=== PATIENT | female | born 1945 | race Caucasian/White ===

== ENCOUNTER 2022-07-13 20:16 | Emergency (ER) | payer OTHER, SELFPAY ==
[2022-07-13 20:28] VITALS: BP 123/80; PULSE 81; RESP 18; TEMP 36.3; O2SAT 95; BMI 28.9
[2022-07-13 20:28] LABS: Appearance Urine Slightly Cloudy (Clear); Bilirubin Urine Negative (Negative); Blood Urine Trace-intact (Negative); Color Urine Yellow (Yellow); Glucose Urine Negative (Negative); Ketones Urine Negative (Negative); Leukocyte Esterase Urine 1+ (Negative); Nitrite Urine Negative (Negative); Protein Urine Negative (Negative); Urobilinogen Urine 0.2 (0.2-1.0); pH Urine 7.5 (5.0-8.5)
[2022-07-13 20:40] LABS: RBC Urine 0-2 (0-2); Squamous Epithelial Cell Urine Few (None-Few)
[2022-07-13] MEDS: CIPROFLOXACIN 500 MG TABLET PO (21:46)
--- NOTE | 2022-07-14 00:20 | ED.FEMALEGU ---
HPI - Female Genitourinary General Date Seen: 07/14/22 Chief complaint: Urogenital Problems, Female Stated complaint: UTI Time Seen by Provider: 07/13/22 20:22 Source: patient Mode of arrival: ambulatory Limitations: no limitations History of Present Illness HPI Narrative: Patient is a very nice 76-year-old female presents here with dysuria frequency of urination for the last 4 hours or so, she goes to the bathroom probably every 15 minutes, very characteristic of a previous UTIs that she has had. She denies any blood in her urine, any fevers chills nausea vomiting or back pain associated with this. Been to this emergency room a couple times in the past for UTIs in tells me that she wants to make sure she takes the right antibiotic as it almost seemed like she took the wrong 1 in the past. She underwent a colonoscopy yesterday and mother wonders if this cause possibly the UTI, she did have some biopsies. Done MD elicited complaint: dysuria and UTI Patient : No Related Data Previous Rx's Medication Instructions Recorded ciprofloxacin HCl 250 mg tablet 250 mg PO BID #14 tabs 07/13/22 Allergies Allergy/AdvReac Type Severity Reaction Status Date / Time Sulfa (Sulfonamide Allergy Intermediate Rash Verified 07/13/22 20:27 Antibiotics) Review of Systems Status of ROS: Reports: 6 or more systems reviewed and unremarkable except as noted in History and below PFSH PFS Social History Smoking Status: Never smoker Do you use any of these nicotine containing products: None How often do you have a drink containing alcohol: never AUDIT-C Alcohol total score: 0 Non-prescribed substance use: denies use Exam Narrative: Exam Narrative: On examination she has no tenderness to palpation over her abdomen bowel sounds are normal no organomegaly, no CVA tenderness. Const: Vital Signs, click to edit/add: Vital Signs - 24 hr 07/13/22 20:28 Temperature 97.3 F L Pulse Rate [Pulse Oximeter] 81 Respiratory Rate 18 Blood Pressure [Ri ght Upper Arm] 123/80 Pulse Oximetry 95 Oxygen Delivery Me thod Room Air Course Course Hospital Course: Her UA does give some support to the fact she has a bladder infection, I reviewed her previous visits here and she grew Klebsiella and Proteus. They were all sensitive to Cipro, and I think this would be a good choice for her, I went over the risk of taking this medication including tendon rupture, and kidney issues. We will dose her 250 twice daily. With an initial 500 mg dosage. She will follow up if any further worsening or signs and symptoms, we will call her if the culture grows anything else. Vital Signs Vital signs: Initial Vital Signs Temperature 97.3 F L 07/13/22 20:28 Temperature Source Temporal Artery Scan 07/13/22 20:28 Pulse Rate 81 07/13/22 20:28 Respiratory Rate 18 07/13/22 20:28 Blood Pressure 123/80 07/13/22 20:28 Blood Pressure Mean 94 07/13/22 20:28 Pulse Oximetry 95 07/13/22 20:28 Oxygen Delivery Method Room Air 07/13/22 20:28 Vital Signs Temperature 97.3 F L 07/13/22 20:28 Pulse Rate 81 07/13/22 20:28 Respiratory Rate 18 07/13/22 20:28 Blood Pressure 123/80 07/13/22 20:28 Pulse Oximetry 95 07/13/22 20:28 Oxygen Delivery Method Room Air 07/13/22 20:28 Temperature 97.3 F L 07/13/22 20:28 Pulse Rate 81 07/13/22 20:28 Respiratory Rate 18 07/13/22 20:28 Blood Pressure 123/80 07/13/22 20:28 Pulse Oximetry 95 07/13/22 20:28 Oxygen Delivery Method Room Air 07/13/22 20:28 MDM - Female Genitourinary Differential Diagnosis Differential diagnosis: Likely urinary tract infection, bacterial vaginosis, trichomoniasis, ovarian cyst, cyst of Bartholin's gland and cystitis Medical Records Attestation: I reviewed the patient's medical records. Lab Data Attestation: I reviewed the patient's lab results. Labs: Lab Results 07/13/22 Range/Units 20:22 Urine Color Yellow (Yellow) Urine Appearance Slightly Cloudy A (Clear) Urine pH 7.5 (5.0-8.5) Ur Specific [place] 1.010 (1.000-1.030) Urine Protein Negative (Negative) Urine Glucose (UA) Negative (Negative) Urine Ketones Negative (Negative) Urine Blood Trace-intact A (Negative) Urine Nitrite Negative (Negative) Urine Bilirubin Negative (Negative) Urine Urobilinogen 0.2 (0.2-1.0) Ur Leukocyte Esterase 1+ A (Negative) Urine RBC 0-2 (0-2) Urine WBC 2-5 (0-5) Ur Squamous Epith Cells Few (None-Few) Urine Bacteria None (None) Discharge Plan Discharge Clinical Impression: Urinary tract infection Patient Disposition: Home, Self-Care Condition: Stable Instructions: Urinary Tract Infection in Older Adults (ED) Additional Instructions: Home, rest, use of medications as directed. Continue with the fluids. Return here if increasing fevers chills nausea vomiting or other issues. Activity Level: No Restrictions Prescriptions: New ciprofloxacin HCl 250 mg tablet 250 mg PO BID Qty: 14 0RF Follow Up/Referrals: Provider,Not a Local [Primary Care Provider] - Stand Alone Forms: [employer] Info Instructions
== END 2022-07-13 21:49 | disposition home or self-care (01) ==
PROVIDERS: Emergency Provider Family Medicine
DX: N39.0 Urinary tract infection, site not specified (principal)
CPT/HCPCS: 81001; 99283; A9270

== ENCOUNTER 2023-03-07 16:17 | Outpatient (CLI) | payer OTHER, SELFPAY | END 2023-03-07 16:18 | disposition home or self-care (01) | LOC: AMB 03-17 09:31 | PROVIDERS: Visit Provider Family Medicine | DX: R06.09 Other forms of dyspnea (principal); R53.1 Weakness | CPT/HCPCS: A0425; A0427 ==

== ENCOUNTER 2023-08-18 09:55 | Observation (INO) | payer OTHER, SELFPAY ==
[2023-08-18] VITALS (51 sets, daily range): BP systolic 71–119; BP diastolic 43–71; PULSE 50–77; RESP 12–31; TEMP 36.2–36.8; O2SAT 86–100; BMI 28.9
[2023-08-18] MEDS: 0.9 % SODIUM CHLORIDE 1000 ml 1,000 ML IV (10:20)
--- NOTE | 2023-08-18 10:22 | CRLHL7_ITS ---
For Patients: As a result of the Cures Act, medical imaging exams and procedure reports are released immediately into your electronic medical record. You may view this report before your referring provider. If you have questions, please contact your health care provider. Indication Wheezes Technique One view(s) of the chest Comparison Chest radiograph on June 09, 2023 and December 12, 2022 Findings The cardiomediastinal silhouette and pulmonary vasculature are unremarkable. There is no focal airspace consolidation, pleural effusion, or pneumothorax. No displaced fractures. Lumbar scoliosis and degenerative changes of the spine. 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 Impression No acute cardiopulmonary process. Dictated by Perez Olmos MD @ 08/18/2023 10:44:09 AM (Electronically Signed)
--- NOTE | 2023-08-18 10:24 | ED_ITS ---
HPI - Weakness General Chief complaint: Weakness Stated complaint: Weakness, diarrhea, nausea Time Seen by Provider: 08/18/23 10:01 History of Present Illness HPI Narrative: This 77-year-old female comes in reporting generalized weakness with some nausea and lightheadedness. She has had some diarrhea over the past few days but had none yesterday. She arrives here with systolic blood pressure in the 90s. She is on 2 antihypertensive medications and states that her doctor reports that she has white coat syndrome. She started a new antihypertensive medication somewhat recently and states that she is feeling more lightheaded at times. She states that she wakes up in the morning and feels okay but these symptoms come after few hours. She takes her blood pressure medications in the morning. She does not report any pain. She has not had any blood in the toilet. She has not had any fevers. She does have history of asthma but did not take her breathing treatment medicines this morning. She arrives with normal oximetry and normal temperature. She does have bilateral wheezes. Related Data Home Medications ?Medication ?Instructions ?Recorded ?Confirmed albuterol sulfate 90 mcg/actuation 1 inh inhalation Q4H PRN 12/12/22 08/18/23 aerosol inhaler fenofibrate micronized 134 mg 134 mg PO DAILY 12/12/22 08/18/23 capsule fluticasone fur. 200 mcg-umeclid 1 ea inhalation DAILY 12/12/22 08/18/23 62.5 mcg-vilant 25 mcg inhalat.powder (Trelegy Ellipta) hydrocortisone 5 mg tablet 10 mg PO BID 12/12/22 08/18/23 ipratropium 0.5 mg-albuterol 3 mg 1.5 ml inhalation BID 12/12/22 08/18/23 (2.5 mg base)/3 mL nebulization soln levothyroxine 150 mcg tablet 150 mcg PO DAILY 12/12/22 08/18/23 montelukast 10 mg tablet 10 mg PO HS 12/12/22 08/18/23 paroxetine HCl 40 mg tablet 40 mg PO DAILY 12/12/22 08/18/23 apixaban 5 mg tablet (Eliquis) 5 mg PO BID 08/18/23 08/18/23 atorvastatin 40 mg tablet 40 mg PO HS 08/18/23 08/18/23 hydrochlorothiazide 25 mg tablet 25 mg PO DAILY 08/18/23 08/18/23 losartan 50 mg tablet 50 mg PO DAILY 08/18/23 08/18/23 metformin 500 mg tablet 500 mg PO BIDWM 08/18/23 08/18/23 nitroglycerin 0.4 mg sublingual 0.4 mg sublingual Q5M PRN 08/18/23 08/18/23 tablet potassium chloride 10 mEq 10 meq PO DAILY 08/18/23 08/18/23 capsule,extended release Allergies Allergy/AdvReac Type Severity Reaction Status Date / Time Sulfa (Sulfonamide Allergy Intermediate Rash Verified 06/09/23 13:21 Antibiotics) diltiazem Allergy Verified 08/18/23 10:13 Review of Systems Status of ROS: Reports: 10 or more systems reviewed and unremarkable except as noted in History and below Narrative: Constitutional: No fevers, no weight gain or loss. Eyes: No discharge. No vision changes. HENT: No congestion, no sore throat, no ear pain. Cardiovascular: No chest pain, no palpitations. Respiratory: No shortness of breath. She has history of asthma symptoms and does report a cough. Gastrointestinal: No abdominal pain, no vomiting, no diarrhea. Genitourinary: No dysuria, no hematuria. Musculoskeletal: Normal range of motion. Skin: No rashes, no pruritis. Neurological: No sensory change, speech change. She reports generalized weakness and episodes of lightheadedness. Endo/Heme/Allergies: No bruising or bleeding. No polydipsia. Pysch: no suicidality, no anxiety, no insomnia. All other systems reviewed and are negative. [facility] Medical History Pneumonia ?J18.9 - Pneumonia, unspecified organism (ICD-10) Shortness of breath ?R06.02 - Shortness of breath (ICD-10) Social History Smoking Status: Never smoker Do you use any of these nicotine containing products: None How often do you have a drink containing alcohol: never AUDIT-C Alcohol total score: 0 Non-prescribed substance use: denies use Exam Narrative: Exam Narrative: Constitutional: Well-developed, well-nourished HEENT: Normocephalic, atraumatic. Neck: Normal range of motion. Nontender. Supple. Heart: Regular. No murmurs. Normal rate. Intact distal pulses. Lungs: Clear to auscultation. No chest discomfort. No wheezes, rhonchi, or rales. Abdomen: Normal bowel sounds. Nontender. No rebound tenderness. Genitalia: Deferred. Back: No midline tenderness. Normal range of motion. Extremities: Normal range of motion. No injury. Skin: Intact. No rash. Warm. No erythema or pallor. Neurologic: No altered sensation. Alert and oriented. Psychiatric: No suicidality. No anxiety or depression. No insomnia. Nursing notes and vitals signs are reviewed. Const: Vital Signs, click to edit/add: Vital Signs - 24 hr 08/18/23 10:05 08/18/23 10:19 08/18/23 10:20 Temperature 97.2 F L Pulse Rate 66 Pulse Rate [Right Pulse Oximeter] 77 Respiratory Rate 18 Blood Pressure 71/48 L Blood Pressure [Ri ght Upper Arm] 94/59 L Pulse Oximetry 94 99 Oxygen Delivery [facility] Room Air 08/18/23 10:23 08/18/23 10:26 08/18/23 10:31 Temperature Pulse Rate 63 57 L 60 Pulse Rate [Right Pulse Oximeter] Respiratory Rate Blood Pressure 74/51 L 81/49 L 75/43 L Blood Pressure [Ri ght Upper Arm] Pulse Oximetry 91 98 100 Oxygen Delivery [facility] 08/18/23 10:36 08/18/23 10:42 08/18/23 10:45 Temperature Pulse Rate 56 L 53 L 53 L Pulse Rate [Right Pulse Oximeter] Respiratory Rate 31 H 15 Blood Pressure 81/50 L 88/52 L 72/61 L Blood Pressure [Ri ght Upper Arm] Pulse Oximetry 97 97 97 Oxygen Delivery [facility] 08/18/23 10:51 08/18/23 10:57 08/18/23 11:02 Temperature Pulse Rate 54 L 55 L 56 L Pulse Rate [Right Pulse Oximeter] Respiratory Rate 20 26 H 26 H Blood Pressure 86/51 L 93/52 L 83/47 L Blood Pressure [Ri ght Upper Arm] Pulse Oximetry 99 95 95 Oxygen Delivery [facility] 08/18/23 11:06 Temperature Pulse Rate 55 L Pulse Rate [Right Pulse Oximeter] Respiratory Rate 20 Blood Pressure 90/52 L Blood Pressure [Ri ght Upper Arm] Pulse Oximetry 98 Oxygen Delivery Me thod Course Vital Signs Vital signs: Initial Vital Signs Temperature 97.2 F L 08/18/23 10:05 Temperature Source Temporal Artery Scan 08/18/23 10:05 Pulse Rate 77 08/18/23 10:05 Respiratory Rate 18 08/18/23 10:05 Blood Pressure 94/59 L 08/18/23 10:05 Blood Pressure Mean 70 08/18/23 10:05 Blood Pressure Position Sitting 08/18/23 10:05 Pulse Oximetry 94 08/18/23 10:05 Oxygen Delivery Method Room Air 08/18/23 10:05 Vital Signs Temperature 97.2 F L 08/18/23 10:05 Pulse Rate 77 08/18/23 10:05 Respiratory Rate 18 08/18/23 10:05 Blood Pressure 94/59 L 08/18/23 10:05 Pulse Oximetry 94 08/18/23 10:05 Oxygen Delivery Method Room Air 08/18/23 10:05 Temperature 97.2 F L 08/18/23 10:05 Pulse Rate 55 L 08/18/23 11:06 Respiratory Rate 20 08/18/23 11:06 Blood Pressure 90/52 L 08/18/23 11:06 Pulse Oximetry 98 08/18/23 11:06 Oxygen Delivery Method Room Air 08/18/23 10:05 Medications Administered Medications: Discontinued Medications Generic Name Dose Route Start Last Admin Trade Name Freq PRN Reason Stop Dose Admin Sodium Chloride 1,000 mls @ 1,000 mls/hr 08/18/23 10:30 08/18/23 11:30 0.9 % Sodium Chloride 1000 Ml IV 08/18/23 11:29 Infused .Q1H HAILEY Infusion Ondansetron HCl 4 mg 08/18/23 10:21 08/18/23 10:29 Ondansetron 2 Mg/Ml Inj IVP 08/18/23 10:22 4 mg ONCE ONE Administration MDM - Weakness MDM Narrative Medical decision making narrative: This patient comes in reporting generalized weakness and lightheadedness in states that she has had diarrhea over the past 2 or 3 days. She arrives here with systolic blood pressure around 90. An IV was established where she received a L of normal saline and pressures continued in similar readings. A 2 L of fluids was ordered this time with lactated Ringer's as the potassium returned at 2.5. The patient is taking potassium supplements and currently is taking hydrochlorothiazide and losartan. She states that she took these medicines prior to arrival here. EKG and troponin returned with normal findings. Chest x-ray is negative for acute pulmonary disease. Her lactate returns in normal range as is her white blood count. She is not showing any signs of sepsis or cardiogenic cause for her decreased blood pressure. Most likely it has to do with volume depletion and antihypertensive medications. I did order an oral dose of potassium chloride. I spoke with the hospitalist donation worker, Radha Joya, who agrees to her admission. Lab Data Labs: Lab Results 08/18/23 08/18/23 08/18/23 Range/Units 10:20 10:22 10:25 WBC 7.41 (4.50-11.00) K/uL RBC 5.02 (4.00-5.20) m/uL Hgb 13.3 (12.0-16.0) gm/dL Hct 41.1 (33.0-51.0) % MCV 82 (80-100) fL MCH 27 (26-34) pg MCHC 32 (32-36) gm/dL RDW Coeff of Reena 14.7 (11.5-15.5) % Plt Count 225 (140-440) K/uL Neut % (Auto) 77.2 H (42.0-72.0) % Lymph % (Auto) 12.0 L (20-44) % [place] % (Auto) 8.6 (0.0-11.0) % Eos % (Auto) 1.5 (0.0-7.0) % Baso % (Auto) 0.4 (0.0-3.0) % Neut # (Auto) 5.70 (1.7-7.0) K/uL Lymph # (Auto) 0.90 (0.90-2.90) K/uL [place] # (Auto) 0.60 (0.00-0.90) K/UL Eos # (Auto) 0.11 (0.00-0.50) K/uL Baso # (Auto) 0.03 (0.00-0.30) K/uL Abs Immat Gran (auto) 0.02 (0.00-0.30) K/uL Imm/Tot Granulo (auto) 0.3 % Sodium 132 L (135-149) mmol/L Potassium 2.5 L* (3.6-5.1) mmol/L Chloride 97 (96-114) mmol/L Carbon Dioxide 28 (20-32) mmol/L Anion Gap 7 (7-15) mEq/L BUN 32 H (7-30) mg/dL Creatinine 1.6 H (0.5-1.5) mg/dL Estimated Creat Clear 29.23 Estimated GFR 33 ml/min Glucose 95 (60-115) mg/dL Lactate 1.2 (0.5-1.9) mmol/L Calcium 8.0 L (8.4-10.6) mg/dL SARS-CoV-2 (PCR) Negative SARS-CoV-2 (Negative) Influenza Type A (PCR) Negative PCR FLU A (Negative) Influenza Type B (PCR) Negative PCR FLU B (Negative) RSV (PCR) Negative PCR RSV (Negative) POC Troponin I 0.01 (0.01-0.04) ng/ml ECG Data Attestation: I personally reviewed and interpreted this ECG as follows: Interpretation: Normal sinus rhythm. Rate is 68 beats per minute. There are no ST or T-wave abnormalities. Discharge Plan Discharge Clinical Impression: Fluid volume depletion, Acute hypokalemia, Hypotension Patient Disposition: Admitted As Observation Prescriptions: No Action ipratropium-albuterol 0.5 mg-3 mg(2.5 mg base)/3 mL solution for nebulization 1.5 ml inhalation BID Patient Comments: [NO ORIGINAL SIG] montelukast 10 mg tablet 10 mg PO HS Trelegy Ellipta 200-62.5-25 mcg blister with device 1 ea inhalation DAILY hydrocortisone 5 mg tablet 10 mg PO BID levothyroxine 150 mcg tablet 150 mcg PO DAILY fenofibrate micronized 134 mg capsule 134 mg PO DAILY paroxetine HCl 40 mg tablet 40 mg PO DAILY albuterol sulfate 90 mcg/actuation HFA aerosol inhaler 1 inh inhalation Q4H PRN losartan 50 mg tablet 50 mg PO DAILY potassium chloride 10 mEq capsule, extended release 10 meq PO DAILY nitroglycerin 0.4 mg tablet, sublingual 0.4 mg sublingual Q5M PRN hydrochlorothiazide 25 mg tablet 25 mg PO DAILY Eliquis 5 mg tablet 5 mg PO BID atorvastatin 40 mg tablet 40 mg PO HS metformin 500 mg tablet 500 mg PO BIDWM Follow Up/Referrals: Provider,Not a Local [Primary Care Provider] -
[2023-08-18] MEDS: ONDANSETRON 2 MG/ML inj 4 MG IVP (10:29)
[2023-08-18 10:30] LABS: Basophils Absolute Auto 0.03 K/uL (0.00-0.30); Basophils Percent Auto 0.4 % (0.0-3.0); Eosinophils Absolute Auto 0.11 K/uL (0.00-0.50); Eosinophils Percent Auto 1.5 % (0.0-7.0); Hematocrit 41.1 % (33.0-51.0); Hemoglobin* 13.3 gm/dL (12.0-16.0); Immature Granulocytes Abs Auto 0.02 K/uL (0.00-0.30); Immature Granulocytes Pct Auto 0.3 %; Mean Corpuscular HGB Conc 32 gm/dL (32-36); Mean Corpuscular Hemoglobin 27 pg (26-34); Mean Corpuscular Volume 82 fL (80-100); Monocytes Percent Auto 8.6 % (0.0-11.0); Neutrophils Percent Auto 77.2 % (42.0-72.0); Platelet Count* 225 K/uL (140-440); RDW Coefficient of Variation % 14.7 % (11.5-15.5); Red Blood Count 5.02 m/uL (4.00-5.20); White Blood Count* 7.41 K/uL (4.50-11.00)
[2023-08-18 10:31] LABS: Lactate* 1.2 mmol/L (0.5-1.9)
[2023-08-18 10:33] LABS: Slide Review Reflex No
[2023-08-18 10:45] LABS: Chloride* 97 mmol/L (96-114); Sodium* 132 mmol/L (135-149)
[2023-08-18 10:48] LABS: Anion Gap 7 mEq/L (7-15); Blood Urea Nitrogen* 32 mg/dL (7-30); Carbon Dioxide* 28 mmol/L (20-32); Creatinine* 1.6 mg/dL (0.5-1.5); Est. Creatinine Clearance* 29.23; Estimated Glomerular Filt Rate 33 ml/min; Glucose* 95 mg/dL (60-115)
[2023-08-18 10:53] LABS: Potassium* 2.5 mmol/L (3.6-5.1)
--- NOTE | 2023-08-18 11:01 | ED.NURSE ---
call from lab, critical K, care nurse and MD notified.
[2023-08-18 11:06] LABS: Troponin, Point-of-Care* 0.01 ng/ml (0.01-0.04)
[2023-08-18 11:12] LABS: PCR FLU A Negative PCR FLU A (Negative); PCR FLU B Negative PCR FLU B (Negative); PCR RSV Negative PCR RSV (Negative); SARS PCR* Negative SARS-CoV-2 (Negative)
[2023-08-18] MEDS: LACTATED RINGERS 1000 ML 1,000 ML IV (11:44)
[2023-08-18 12:08] LABS: Appearance Urine Clear (Clear); Bilirubin Urine Negative (Negative); Blood Urine Trace-lysed (Negative); Color Urine Yellow (Yellow); Glucose Urine Negative (Negative); Ketones Urine Negative (Negative); Leukocyte Esterase Urine Negative (Negative); Nitrite Urine Negative (Negative); Protein Urine Negative (Negative); Urobilinogen Urine 0.2 (0.2-1.0)
--- NOTE | 2023-08-18 12:11 | CRLHL7_ITS ---
For Patients: As a result of the Century Cures Act, medical imaging exams and procedure reports are released immediately into your electronic medical record. You may view this report before your referring provider. If you have questions, please contact your health care provider. INDICATION: Hypotension TECHNIQUE: Axial images were obtained from the diaphragm to the pubic symphysis. Reformats were obtained in the coronal and sagittal plane. IV Contrast: 93 cc Isovue 370 Oral Contrast: None COMPARISON: None. FINDINGS: Lower chest: Scattered areas of discoid atelectasis within the right lower lobe and right middle lobe. 3 millimeter noncalcified pulmonary nodule in the right middle lobe (3, 7). Liver: Unremarkable. Normal in size and attenuation. No masses. Gallbladder and bile ducts: Slight gallbladder wall thickening questioned (series 2, image 56). Spleen: Unremarkable. Normal in size without mass. Pancreas: Unremarkable. No mass or inflammation. Adrenal glands: Unremarkable. No nodules. Kidneys: Unremarkable. No masses, stones, or hydronephrosis. Vasculature: Atherosclerosis without abdominal aortic aneurysm. GI tract: The stomach is decompressed and unremarkable. No dilated loops of large or small intestine. Normal appendix. Colonic diverticulosis. Pelvis: The bladder is unremarkable. 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 IMPRESSION: 1. Minimal gallbladder wall thickening questioned. This is equivocal although right upper quadrant ultrasound is suggested for further characterization. 2. Colonic diverticulosis without CT evidence of diverticulitis. 3. Indeterminate right middle lobe pulmonary nodule measuring 3 millimeters. Management as per Fleischner society criteria below. SOCIETY GUIDELINES - SOLID NODULES: SINGLE LOW RISK - nodule less than 6 mm: No routine follow-up. SINGLE HIGH RISK - nodule less than 6 mm: Optional CT at 12 months. Please note that all CT scans at this facility use dose modulation, iterative reconstruction, and/or weight-based dosing when appropriate to reduce radiation dose to as low as reasonably achievable. Dictated by Calixto Carreon MD @ 08/18/2023 1:32:00 PM (Electronically Signed)
[2023-08-18 12:12] LABS: HCO3 VBG 28 mmol/L (21-28); PCO2 VBG 41 mmHG (40-50); PO2 VBG < 30.0 mmHG (25-47); pH VBG 7.445 (7.32-7.43)
[2023-08-18 12:20] LABS: RBC Urine 0-2 (0-2); Squamous Epithelial Cell Urine Few (None-Few); WBC Urine 0-2 (0-5)
--- NOTE | 2023-08-18 13:59 | PM.IMHP1 ---
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 Patient is seen with at bedside. Tells me she started losartan and hydrochlorothiazide in May for blood pressures thought to be white coat syndrome. Since that time, has had significant lightheadedness and dizziness, needing to change positions slowly to decrease symptoms. Has noted some fatigue. Earlier this week complained of increasing fatigue, weakness. Onset of diarrhea Monday with 1 episode following by several episodes Monday. None since. Denies bloody or black stools. Is on an anticoagulant. Denies abdominal pain or cramping. No colic pain. Has had some intermittent nausea without vomiting. Decreased appetite with poor oral intake. Has continued to urinate normally. Denies headaches. Endorses dizziness and lightheadedness since May. Denies recent fevers chills or sweats. Denies chest pain. Denies shortness of breath or coughing worse than normal. Uses her DuoNebs twice daily. Denies peripheral swelling. Nonsmoker. Denies alcohol use. Wishes to be a full code. In the ED, initial saturations noted to be <90% briefly. Has not required ongoing oxygen supplementation. Systolic blood pressures <90, improving with IVF. Afebrile. No leukocytosis, lactate unremarkable. CXR without acute infectious/inflammatory findings. Triple swab negative. UA unremarkable. ACS ruled out. Review of Systems Narrative: REVIEW OF SYSTEMS: Complete review of systems performed and negative unless otherwise stated in HPI or below. [facility] Medical History Elevated hemoglobin A1c ?R73.09 - Other abnormal glucose (ICD-10) Hyperlipidemia ?E78.5 - Hyperlipidemia, unspecified (ICD-10) Hypertension ?I10 - Essential (primary) hypertension (ICD-10) Hypothyroidism ?E03.9 - Hypothyroidism, unspecified (ICD-10) Atrial fibrillation ?I48.91 - Unspecified atrial fibrillation (ICD-10) History of pituitary tumor ?Z87.898 - Personal history of other specified conditions (ICD-10) Adrenal insufficiency ?E27.40 - Unspecified adrenocortical insufficiency (ICD-10) Pneumonia ?J18.9 - Pneumonia, unspecified organism (ICD-10) Shortness of breath ?R06.02 - Shortness of breath (ICD-10) Social History Smoking Status: Never smoker Do you use any of these nicotine containing products: None How often do you have a drink containing alcohol: never AUDIT-C Alcohol total score: 0 Non-prescribed substance use: denies use Meds Home Medications and Allergies Home Medications ?Medication ?Instructions ?Recorded ?Confirmed ?Type albuterol sulfate 90 mcg/actuation 1 inh inhalation Q4H PRN 12/12/22 08/18/23 History aerosol inhaler fenofibrate micronized 134 mg 134 mg PO DAILY 12/12/22 08/18/23 History capsule fluticasone fur. 200 mcg-umeclid 1 ea inhalation DAILY 12/12/22 08/18/23 History 62.5 mcg-vilant 25 mcg inhalat.powder (Trelegy Ellipta) hydrocortisone 5 mg tablet 5 - 15 mg PO BID 12/12/22 08/18/23 History ipratropium 0.5 mg-albuterol 3 mg 1.5 ml inhalation BID 12/12/22 08/18/23 History (2.5 mg base)/3 mL nebulization soln levothyroxine 150 mcg tablet 150 mcg PO DAILY 12/12/22 08/18/23 History montelukast 10 mg tablet 10 mg PO HS 12/12/22 08/18/23 History paroxetine HCl 40 mg tablet 40 mg PO DAILY 12/12/22 08/18/23 History apixaban 5 mg tablet (Eliquis) 5 mg PO BID 08/18/23 08/18/23 History atorvastatin 40 mg tablet 40 mg PO HS 08/18/23 08/18/23 History hydrochlorothiazide 25 mg tablet 25 mg PO DAILY 08/18/23 08/18/23 History losartan 50 mg tablet 50 mg PO DAILY 08/18/23 08/18/23 History metformin 500 mg tablet 500 mg PO BIDWM 08/18/23 08/18/23 History nitroglycerin 0.4 mg sublingual 0.4 mg sublingual Q5M PRN 08/18/23 08/18/23 History tablet potassium chloride 10 mEq 10 meq PO DAILY 08/18/23 08/18/23 History capsule,extended release Allergies Allergy/AdvReac Type Severity Reaction Status Date / Time Sulfa (Sulfonamide Allergy Intermediate Rash Verified 06/09/23 13:21 Antibiotics) diltiazem Allergy Verified 08/18/23 10:13 Exam Narrative: Exam Narrative: PHYSICAL EXAM General: Pleasant, conversant, NAD HEENT: Normocephalic, atraumatic, sclera white, EOMI, oral mucosa dry Cardiovascular: RRR, S1S2. No pitting edema Pulmonary: Coarse throughout, expiratory wheezes noted. No dyspnea on room air Abdominal: Soft, nondistended, NTTP, no guarding Neurological: Alert, answering questions appropriately, cranial nerves intact, no focal findings Extremities: No gross joint deformity or swelling. AROMI. Neurovascularly intact Skin: Warm, dry. Const: Vital Signs, click to edit/add: Vital Signs - 24 hr 08/18/23 10:05 08/18/23 10:19 08/18/23 10:20 Temperature 97.2 F L Pulse Rate 66 Pulse Rate [Right Pulse Oximeter] 77 Respiratory Rate 18 Blood Pressure 71/48 L Blood Pressure [Ri ght Upper Arm] 94/59 L Pulse Oximetry 94 [facility] 08/18/23 10:23 08/18/23 10:26 08/18/23 10:31 Temperature Pulse Rate 63 57 L 60 Pulse Rate [Right Pulse Oximeter] Respiratory Rate Blood Pressure 74/51 L 81/49 L 75/43 L Blood Pressure [Ri ght Upper Arm] Pulse Oximetry 91 98 100 Oxygen Delivery Ma thod 08/18/23 10:36 08/18/23 10:42 08/18/23 10:45 Temperature Pulse Rate 56 L 53 L 53 L Pulse Rate [Right Pulse Oximeter] Respiratory Rate 31 H 15 Blood Pressure 81/50 L 88/52 L 72/61 L Blood Pressure [Ri ght Upper Arm] Pulse Oximetry 97 97 97 [facility] 08/18/23 10:51 08/18/23 10:57 08/18/23 11:02 Temperature Pulse Rate 54 L 55 L 56 L Pulse Rate [Right Pulse Oximeter] Respiratory Rate 20 26 H 26 H Blood Pressure 86/51 L 93/52 L 83/47 L Blood Pressure [Ri ght Upper Arm] Pulse Oximetry 99 95 [facility] 08/18/23 11:06 08/18/23 11:07 08/18/23 11:11 Temperature Pulse Rate 55 L 56 L 57 L Pulse Rate [Right Pulse Oximeter] Respiratory Rate 20 12 24 Blood Pressure 90/52 L 99/53 L Blood Pressure [Ri ght Upper Arm] Pulse Oximetry 98 94 [facility] 08/18/23 11:15 08/18/23 11:16 08/18/23 11:21 Temperature Pulse Rate 56 L 56 L 54 L Pulse Rate [Right Pulse Oximeter] Respiratory Rate 28 H 28 H 19 Blood Pressure 93/54 L 85/50 L Blood Pressure [Ri ght Upper Arm] Pulse Oximetry 94 92 86 L [facility] 08/18/23 11:26 08/18/23 11:30 08/18/23 11:31 Temperature Pulse Rate 53 L 52 L 57 L Pulse Rate [Right Pulse Oximeter] Respiratory Rate 17 24 27 H Blood Pressure 93/52 L 99/60 Blood Pressure [Ri ght Upper Arm] Pulse Oximetry [address] [facility] 08/18/23 11:36 08/18/23 11:37 08/18/23 11:41 Temperature Pulse Rate 50 L 59 L Pulse Rate [Right Pulse Oximeter] Respiratory Rate 30 H 25 H 20 Blood Pressure 79/50 L 103/62 Blood Pressure [Ri ght Upper Arm] Pulse Oximetry 96 [address] [facility] 08/18/23 11:45 08/18/23 11:46 08/18/23 11:51 Temperature Pulse Rate 57 L 54 L Pulse Rate [Right Pulse Oximeter] Respiratory Rate 12 12 Blood Pressure 80/64 L 83/48 L Blood Pressure [Ri ght Upper Arm] Pulse Oximetry 89 [facility] 08/18/23 11:53 08/18/23 12:00 08/18/23 12:01 Temperature Pulse Rate 64 59 L Pulse Rate [Right Pulse Oximeter] Respiratory Rate Blood Pressure 88/56 L 103/51 L Blood Pressure [Ri ght Upper Arm] Pulse Oximetry 93 97 [facility] 08/18/23 12:11 08/18/23 12:21 08/18/23 12:42 Temperature Pulse Rate 54 L 63 65 Pulse Rate [Right Pulse Oximeter] Respiratory Rate Blood Pressure 107/53 L 106/57 L 103/63 Blood Pressure [Ri ght Upper Arm] Pulse Oximetry 93 95 [facility] 08/18/23 12:43 08/18/23 12:45 08/18/23 12:46 Temperature Pulse Rate 64 64 62 Pulse Rate [Right Pulse Oximeter] Respiratory Rate Blood Pressure 97/59 L Blood Pressure [Ri ght Upper Arm] Pulse Oximetry 98 98 [address] [facility] 08/18/23 12:47 08/18/23 13:00 08/18/23 13:01 Temperature Pulse Rate 66 66 Pulse Rate [Right Pulse Oximeter] Respiratory Rate 24 Blood Pressure 117/61 Blood Pressure [Ri ght Upper Arm] Pulse Oximetry 91 [address] [facility] 08/18/23 13:02 08/18/23 13:15 08/18/23 13:16 Temperature Pulse Rate 67 64 64 Pulse Rate [Right Pulse Oximeter] Respiratory Rate Blood Pressure 119/66 Blood Pressure [Ri ght Upper Arm] Pulse Oximetry 93 96 [facility] 08/18/23 13:30 08/18/23 13:31 08/18/23 13:45 Temperature Pulse Rate 61 62 62 Pulse Rate [Right Pulse Oximeter] Respiratory Rate Blood Pressure 109/65 Blood Pressure [Ri ght Upper Arm] Pulse Oximetry 96 96 [facility] 08/18/23 13:46 Temperature Pulse Rate 63 Pulse Rate [Right Pulse Oximeter] Respiratory Rate Blood Pressure 115/66 Blood Pressure [Ri ght Upper Arm] Pulse Oximetry 94 Oxygen Delivery [facility] Hospitalist - H&P: Result Labs Labs: Short CBC 08/18/23 Range/Units 10:20 WBC 7.41 (4.50-11.00) K/uL Hgb 13.3 (12.0-16.0) gm/dL Hct 41.1 (33.0-51.0) % Plt Count 225 (140-440) K/uL BMP 08/18/23 10:20 Sodium 132 L Potassium 2.5 L* Chloride 97 Carbon Dioxide 28 BUN 32 H Creatinine 1.6 H Glucose 95 Calcium 8.0 L Urine 08/18/23 Range/Units 11:58 Urine Color Yellow (Yellow) Urine Appearance Clear (Clear) Urine pH 6.0 (5.0-8.5) Ur Specific [place] 1.010 (1.000-1.030) Urine Protein Negative (Negative) Urine Glucose (UA) Negative (Negative) ECG Attestation: I personally reviewed and interpreted this ECG as follows: ECG interpretation date: 08/18/23 Interpretation: NSR, incomplete RBBB, ventricular rate 68, QTC [address] scan - abdomen: Attestation: I have reviewed the pertinent imaging results. Radiologist's impression: FINDINGS: Lower chest: Scattered areas of discoid atelectasis within the right lower lobe and right middle lobe. 3 millimeter noncalcified pulmonary nodule in the right middle lobe (3, 7). Liver: Unremarkable. Normal in size and attenuation. No masses. Gallbladder and bile ducts: Slight gallbladder wall thickening questioned (series 2, image 56). Spleen: Unremarkable. Normal in size without mass. Pancreas: Unremarkable. No mass or inflammation. Adrenal glands: Unremarkable. No nodules. Kidneys: Unremarkable. No masses, stones, or hydronephrosis. Vasculature: Atherosclerosis without abdominal aortic aneurysm. GI tract: The stomach is decompressed and unremarkable. No dilated loops of large or small intestine. Normal appendix. Colonic diverticulosis. Pelvis: The bladder is unremarkable. 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 IMPRESSION: 1. Minimal gallbladder wall thickening questioned. This is equivocal although right upper quadrant ultrasound is suggested for further characterization. 2. Colonic diverticulosis without CT evidence of diverticulitis. 3. Indeterminate right middle lobe pulmonary nodule measuring 3 millimeters. Management as per Fleischner society criteria below. SOCIETY GUIDELINES - SOLID NODULES: SINGLE LOW RISK - nodule less than 6 mm: No routine follow-up. SINGLE HIGH RISK - nodule less than 6 mm: Optional CT at 12 months. Chest x-ray: Attestation: I have reviewed the pertinent imaging results. Radiologist's impression: Chest radiograph on June 09, 2023 and December 12, 2022 Findings The cardiomediastinal silhouette and pulmonary vasculature are unremarkable. There is no focal airspace consolidation, pleural effusion, or pneumothorax. No displaced fractures. Lumbar scoliosis and degenerative changes of the spine. 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 Impression No acute cardiopulmonary process. Assessment and Plan Assessment and plan (1) Hypotension: Problem comment: In setting of recent diarrhea, dehydration, hypokalemia, adrenal insufficiency Responding to IVF, continue maintenance fluids and boluses as needed, electrolyte repletion Hold hydrochlorothiazide and losartan (started in May for white coat syndrome per patient) Status: Acute (2) Acute hypokalemia: Problem comment: Potassium 2.5 Potassium bicarbonate 50 meq x2 doses, in addition to 2 IV bumps, recheck at 2000pm Scheduled supplement starting tomorrow morning, monitor Status: Acute (3) Weakness: Problem comment: Multifactorial, recent diarrhea, dehydration, poor oral take, hypokalemia, antihypertensive therapy, adrenal insufficiency PT/OT Status: Acute (4) Diarrhea: Problem comment: 08/14-08/15, no BM since. If recurs, consider GI panel/C. Diff No abdominal pain, cramping, no vomiting CT shows diverticulosis without diverticulitis, minimal gallbladder wall thickening noted. AST 89, ALT 57, total bili 1.1 Mag 2.1, phosphorus 2.9 Gallbladder ultrasound preliminary read per oil heat technician some sludge, no evidence of stones, bile duct unremarkable. Final report pending Status: Acute (5) Dehydration: Problem comment: In setting of recent diarrhea, poor oral intake Creatinine 1.6, BUN 32, CO2 28 No change in urine output per patient report Symptomatically improving with IVF Continue to monitor Status: Acute (6) Lightheadedness: Problem comment: Onset following initiation of losartan and hydrochlorothiazide, acutely worsened in setting of above Monitor for improvement following IVF, holding of antihypertensives Orthostatics Status: Acute (7) Adrenal insufficiency: Problem comment: S/p pituitary tumor resection at the age of 24 Some of her current symptoms inline with adrenal crisis (hypotension, weakness, diarrhea, dehydration. No abdominal pain, AMS). Continue to monitor Stress dose hydrocortisone given, continue IVF Continue home dose cortisone Cortisol pending Status: Acute (8) Asthma: Problem comment: Denies acute worsening symptoms; is chronically wheezy Not oxygen dependent. Does not use a CPAP Continue Trelegy ( will bring in), montelukast, scheduled DuoNebs, albuterol nebs p.r.n. Status: Acute (9) Atrial fibrillation: Problem comment: Onset February 2023, cardioverted, not currently on rate control, anticoagulated with apixaban Followed by [facility], last visit 07/20/2023 recommending 6 month follow-up with discussion regarding ongoing need for anticoagulation Status: Acute (10) Hypothyroidism: Problem comment: Continue levothyroxine TSH ordered Status: Acute (11) Hypertension: Problem comment: Hold losartan and hydrochlorothiazide in setting of acute hypotension Monitor, consider need for both antihypertensives (or current doses) given ongoing dizziness/lightheadedness Status: Acute (12) Hyperlipidemia: Problem comment: Continue statin Status: Acute (13) Elevated hemoglobin A1c: Problem comment: A1c 6.9 in March, 6.1 on admission. Outpatient clinical diabetes service visit on 07/27/23 completed after being advised to start metformin by her PCP. Diabetes service reviewed glucose POCs. Recommending dietary and exercise control. Is not taking metformin. Status: Acute (14) Pulmonary nodule: Problem comment: Incidental finding, right middle lobe pulmonary nodule measuring 3 mm, consider repeat CT at 12 months Status: Acute (15) Hyponatremia: Problem comment: Sitting 132, continue to monitor Status: Acute Total Time Spent Total Time Spent: Total time spent caring for the patient today was 75 minutes. This includes time spent for the visit reviewing the chart, time spent during the visit, time spent after the visit and documentation and planning in coordination of care.
[2023-08-18 14:25] LABS: Albumin* 3.9 g/dL (3.3-5.0)
[2023-08-18 14:28] LABS: Alanine Aminotransferase* 57 U/L (4-35); Alkaline Phosphatase* 57 U/L (40-150); Aspartate Amino Transferase* 89 U/L (12-35); Bilirubin Direct* 0.5 mg/dL (0.0-0.5); Bilirubin Total* 1.1 mg/dL (0.1-1.5); Magnesium* 2.1 mg/dL (1.5-2.6); Phosphorus* 2.9 mg/dL (2.5-4.5); Total Protein* 6.5 g/dL (6.0-8.3)
[2023-08-18] MEDS: 0.9 % SODIUM CHLORIDE 1000 ml 1,000 ML 125 ML IV (14:37)
[2023-08-18] MEDS: POTASSIUM CHLORIDE 10 MEQ/100 ML PIGGYBACK 75 MEQ IVPB ×2 (14:37→15:51)
[2023-08-18 14:42] LABS: C Reactive Protein* 15.7 mg/dL (0.5-1.0)
--- NOTE | 2023-08-18 14:46 | CRLHL7_ITS ---
For Patients: As a result of the Century Cures Act, medical imaging exams and procedure reports are released immediately into your electronic medical record. You may view this report before your referring provider. If you have questions, please contact your health care provider. Indication: Possible thickened gallbladder on CT TECHNIQUE: Ultrasound abdomen limited. Sonographic images of the right upper quadrant were obtained using jay-scale and color Doppler images. Comparison: Abdomen and pelvis CT 08/18/2023 FINDINGS: Gallbladder: Distended gallbladder with normal gallbladder wall thickness. No cholelithiasis. Trace gallbladder sludge questioned. Common bile duct: 7 mm. Impression: 1. Trace gallbladder sludge questioned although without evidence of cholelithiasis or gallbladder wall thickening on ultrasound. 2. Borderline diameter common duct. No choledocholithiasis seen although the distal duct is obscured by bowel gas. Dictated by Calixto Carreon MD @ 08/18/2023 3:48:32 PM (Electronically Signed)
[2023-08-18 14:48] LABS: Hemoglobin A1C* 6.1 % (0-5.6)
[2023-08-18 14:59] LABS: Thyroid Stimulating Hormone* 0.331 uIU/mL (0.270-4.20)
[2023-08-18] MEDS: HYDROCORTISONE SOD SUCCINATE 50 MG/ML inj 100 MG IVP (15:09)
[2023-08-18] MEDS: POTASSIUM BICARB 25 MEQ EFFERVESCENT TAB 50 MEQ PO ×2 (15:51→21:21)
[2023-08-18] MEDS: 0.9 % SODIUM CHLORIDE 500 ML 500 ML IV (15:52)
[2023-08-18] MEDS: IPRAT-ALBUT 0.5-2.5 MG/3 ML NEB 1 NEB IH ×2 (17:11→21:24)
--- NOTE | 2023-08-18 19:18 | PC.NURSE ---
[id number]: The patient is pleasant and alert and orientated. The patient reports some lightheadedness when getting up due to low BP. The patient Bp's are soft... O2 status is reassuring. No reports of pain or SOB. IV potassium was infused and PO liquid... the patient tolerated this well. Nebs as needed per the patient. Bilateral inspiratory and expiatory wheezes auscultated in lower bases. Full liquid diet, no nausea reported. SBA w/ RW due to weakness. Call light within reach. Missy OBRIEN BSN
[2023-08-18 20:46] LABS: Potassium* 3.5 mmol/L (3.6-5.1)
[2023-08-18] MEDS: APIXABAN 5 MG TABLET PO (21:22)
[2023-08-18] MEDS: MONTELUKAST 10 MG TABLET PO (21:22)
[2023-08-18] MEDS: ATORVASTATIN CALCIUM 40 MG TABLET PO (21:22)
--- NOTE | 2023-08-18 22:28 | PC.NURSE ---
End of shift: Pleasant and cooperative with cares. Denies any pain or shortness of breath. Denies any nausea. Patient reports that weakness is resolving and patient is feeling closer to baseline after IV and medications. Tolerating full liquid diet.
[2023-08-19] VITALS (7 sets, daily range): BP systolic 115–129; BP diastolic 65–84; PULSE 51–77; RESP 14–20; TEMP 36.4–36.5; O2SAT 93–99
[2023-08-19] MEDS: 0.9 % SODIUM CHLORIDE 1000 ml 1,000 ML 125 ML IV (01:47)
[2023-08-19] MEDS: LEVOTHYROXINE 75 MCG TABLET 150 MCG PO (06:39)
[2023-08-19 07:49] LABS: Hematocrit 35.2 % (33.0-51.0); Hemoglobin* 11.4 gm/dL (12.0-16.0); Mean Corpuscular HGB Conc 32 gm/dL (32-36); Mean Corpuscular Hemoglobin 27 pg (26-34); Mean Corpuscular Volume 82 fL (80-100); Platelet Count* 209 K/uL (140-440); Red Blood Count 4.28 m/uL (4.00-5.20); White Blood Count* 5.27 K/uL (4.50-11.00)
[2023-08-19 07:55] LABS: Slide Review Reflex No
--- NOTE | 2023-08-19 08:00 | PC.NURSE ---
End of shift [id number] - Pt alert, oriented, cooperative and pleasant. Up with standby assistance to bathroom with walker. Pt tolerating RA, full liquid diet, fluids. Denies pain, dizziness, N/V. RN noted pt to experience SOB with exertion, pt recovered quickly and appropriately. Sputum produced with coughing, pt exhibited adequate knowledge to spit out sputum as able. A red discoloration of the skin was noted on the L side of the pt's neck. Charge nurse notified, pt denied pain or discomfort. Charge directed RN to monitor. Redness slightly warm to touch, otherwise unremarkable in texture, shape, and appearance. Pt appears to be resting comfortably at end of shift.
[2023-08-19 08:02] LABS: Chloride* 107 mmol/L (96-114); Potassium* 3.5 mmol/L (3.6-5.1); Sodium* 139 mmol/L (135-149)
[2023-08-19 08:03] LABS: Albumin* 3.2 g/dL (3.3-5.0)
[2023-08-19 08:05] LABS: Creatinine* 0.9 mg/dL (0.5-1.5); Est. Creatinine Clearance* 46.77; Estimated Glomerular Filt Rate 65 ml/min
[2023-08-19 08:06] LABS: Anion Gap 4 mEq/L (7-15); Bilirubin Direct* 0.4 mg/dL (0.0-0.5); Bilirubin Total* 0.6 mg/dL (0.1-1.5); Blood Urea Nitrogen* 22 mg/dL (7-30); Calcium* 7.4 mg/dL (8.4-10.6); Carbon Dioxide* 28 mmol/L (20-32); Glucose* 108 mg/dL (60-115); Total Protein* 5.6 g/dL (6.0-8.3)
[2023-08-19 08:07] LABS: Alanine Aminotransferase* 39 U/L (4-35); Alkaline Phosphatase* 52 U/L (40-150); Aspartate Amino Transferase* 57 U/L (12-35)
[2023-08-19 08:09] LABS: C Reactive Protein* 8.9 mg/dL (0.5-1.0)
[2023-08-19] MEDS: POTASSIUM CHLORIDE 10 MEQ CAPSULE ER 20 MEQ PO ×2 (09:06→17:55)
[2023-08-19] MEDS: PARoxetine 20 MG TABLET 40 MG PO (09:06)
[2023-08-19] MEDS: APIXABAN 5 MG TABLET PO ×2 (09:06→22:04)
[2023-08-19] MEDS: METHYLPREDNISOLONE SOD SUCC 62.5 MG/ML (125) 80 MG IVP ×3 (11:24→22:04)
[2023-08-19] MEDS: diphenhydrAMINE 50 MG/ML inj 25 MG IVP ×3 (11:25→22:05)
[2023-08-19] MEDS: FAMOTIDINE 10 MG/ML inj 20 MG IVP (11:27)
[2023-08-19] MEDS: SODIUM CHLORIDE 0.9 % (FLUSH) 10 ML SYRINGE 5 ML IVF ×2 (11:28→22:04)
[2023-08-19] MEDS: IPRAT-ALBUT 0.5-2.5 MG/3 ML NEB 1 NEB IH ×3 (11:34→22:04)
--- NOTE | 2023-08-19 15:47 | P.IMPN_ITS ---
Progress Note: A&P Assessment and plan (1) Hives: Problem details: - Start solumedrol, IV benadryl and famotidine. Monitor. Status: Acute (2) Hypotension: Problem details: In setting of recent diarrhea, dehydration, hypokalemia, adrenal insufficiency Responding to IVF, continue maintenance fluids and boluses as needed, electrolyte repletion Hold hydrochlorothiazide and losartan (started in May for white coat syndrome per patient) Status: Resolved (3) Acute hypokalemia: Problem details: - 08/17 Potassium 2.5 - 08/18 potassium 3.5. Continue scheduled supplement starting tomorrow morning, monitor Status: Acute (4) Weakness: Problem details: Multifactorial, recent diarrhea, dehydration, poor oral take, hypokalemia, antihypertensive therapy, adrenal insufficiency Improving PT/OT Status: Acute (5) Diarrhea: Problem details: 08/14-08/15, no BM since. If recurs, consider GI panel/C. Diff No abdominal pain, cramping, no vomiting CT shows diverticulosis without diverticulitis, minimal gallbladder wall thickening noted. AST 89, ALT 57, total bili 1.1 Mag 2.1, phosphorus 2.9 Gallbladder ultrasound: some sludge, no evidence of stones, bile duct unremarkable. Status: Resolved (6) Dehydration: Problem details: In setting of recent diarrhea, poor oral intake Creatinine 1.6, BUN 32, CO2 28 No change in urine output per patient report Symptomatically improving with IVF Cr improving. 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 No abdominal pain, AMS). Continue to monitor Continue stress dose steroids (now using solumedrol as above for allergic reaction), stop IVF now that BPs are improved. Status: Acute (9) Asthma: Problem details: Denies acute worsening symptoms; is chronically wheezy Not oxygen dependent. Does not use a CPAP Continue Trelegy ( will bring in), montelukast, scheduled DuoNebs, albuterol nebs p.r.n. Status: Acute (10) Atrial fibrillation: Problem details: Onset February 2023, cardioverted, not currently on rate control, anticoagulated with apixaban Followed by [facility], last visit 07/20/2023 recommending 6 month follow-up with discussion regarding ongoing need for anticoagulation Status: Acute (11) Hypothyroidism: Problem details: Continue levothyroxine - 08/17 TSH 0.331 Status: Acute (12) Hypertension: Problem details: Hold losartan and hydrochlorothiazide due to recent dehydration and hypotension. Monitor, consider need for both antihypertensives (or current doses) given ongoing dizziness/lightheadedness Status: Acute (13) Elevated hemoglobin A1c: Problem details: A1c 6.9 in March, 6.1 on admission. Outpatient clinical diabetes service visit on 07/27/23 completed after being advised to start metformin by her PCP. Diabetes service reviewed glucose POCs. Recommending dietary and exercise control. Is not taking metformin. Status: Acute (14) Hyperlipidemia: Problem details: Continue statin Status: Acute (15) Pulmonary nodule: Problem details: Incidental finding, right middle lobe pulmonary nodule measuring 3 mm, consider repeat CT at 12 months Status: Acute (16) Hyponatremia: Problem details: Na 133, continue to monitor Status: Acute (17) ARF (acute renal failure): Problem details: - Suspect due to dehydration - 08/17 Cr 1.6 - 08/18 Cr 0.9 Status: Resolved Subjective Time Seen by Provider: 10:26 Date Seen: 08/19/23 Interval history: Kendra feels much better today. She no longer has severe malaise or a feeling of doom like she had yesterday. He she continues to feel mildly weak although it is much improved from yesterday. Overnight she use the bathroom a few times and noticed that sometime between 2:00 a.m. and 4:00 a.m. she developed a bright red area on her lower left neck and upper chest that has never been there before and she is not sure what it is. She denies any itching, trauma or bites or sc ratches in that area. There is no warmth or tenderness in that area. I reviewed her medications and she was given IV fluids, potassium, and hydrocortisone, but otherwise no new medications for her. She has never had anything like this before. She denies any perioral numbness or tingling, throat swelling, or difficulty swallowing. Exam Narrative: Exam Narrative: General: No acute distress. Awake, alert, oriented x3. No pallor. No jaundice. Oropharynx: Clear. Mucous membranes moist. Cardiovascular: Regular rate and rhythm. No murmurs, gallops, or rubs. Respiratory: Clear to auscultation bilaterally. No wheezes or crackles. Abdomen: Bowel sounds present. Soft, nondistended, nontender. Extremities: No pedal edema. Skin: Hand-sized area of bright red erythema with very mild edema of the left lower neck and upper chest. There is also a half-dollar sized area of erythema in the left lower corner of her lips. These are not tender or hot, they are essentially flat. There are no abrasions, blisters, or open areas. I rechecked her 2 hours later (she had received solumedrol, benadryl, famotidine), and there was good improvement with the periorbital lesion being completely resolved and the neck rash about 50% resolved. Const: Vital Signs, click to edit/add: Vital Signs - 24 hr 08/18/23 16:00 08/18/23 16:03 08/18/23 16:03 Temperature 97.5 F L Pulse Rate 55 L Pulse Rate [Left P ulse Oximeter] 60 Respiratory Rate 22 22 Blood Pressure [Le ft Arm] 106/64 Pulse Oximetry 100 [facility] 08/18/23 16:03 08/18/23 16:03 08/18/23 19:00 Temperature 98.3 F 97.7 F Pulse Rate Pulse Rate [Left P ulse Oximeter] 55 L 72 Respiratory Rate 20 20 16 Blood Pressure [Le ft Arm] 89/54 L 101/67 Pulse Oximetry 100 100 96 [facility] Room Air Room Air 08/18/23 23:00 08/19/23 03:00 08/19/23 05:56 Temperature Pulse Rate 77 Pulse Rate [Left P ulse Oximeter] 72 61 Respiratory Rate 20 20 Blood Pressure [Le ft Arm] 109/71 116/66 Pulse Oximetry 95 95 [facility] Room Air 08/19/23 07:00 08/19/23 07:00 08/19/23 09:10 Temperature Pulse Rate 77 Pulse Rate [Left P ulse Oximeter] 51 L 56 L Respiratory Rate 14 14 Blood Pressure [Le ft Arm] 121/68 Pulse Oximetry 94 Oxygen Delivery Me thod Room Air 08/19/23 11:37 08/19/23 15:00 Temperature 97.7 F Pulse Rate Pulse Rate [Left P ulse Oximeter] 51 L 56 L Respiratory Rate 18 Blood Pressure [Le ft Arm] 115/84 125/65 Pulse Oximetry 99 93 Oxygen Delivery Me thod Room Air Room Air Labs Labs: Laboratory Results - last 24 hr 08/18/23 08/18/23 08/19/23 10:22 20:02 07:40 WBC 5.27 RBC 4.28 Hgb 11.4 L Hct 35.2 MCV 82 MCH 27 MCHC 32 Plt Count 209 Sodium 139 Potassium 3.5 L 3.5 L Chloride 107 Carbon Dioxide 28 Anion Gap 4 L BUN 22 Creatinine 0.9 Estimated Creat Clear 46.77 Estimated GFR 65 Glucose 108 Calcium 7.4 L Total Bilirubin 0.6 Direct Bilirubin 0.4 AST 57 H ALT 39 H Alkaline Phosphatase 52 C-Reactive Protein 8.9 H Total Protein 5.6 L Albumin 3.2 L TSH 0.331 Ordering Physician: Radha OLIVAREZ Date of Service: 08/18/23 Procedure(s): US abdomen limited Accession Number(s): [id number] cc: Radha OLIVAREZ; Provider,Not a Local~ For Patients: As a result of the Cures Act, medical imaging exams and procedure reports are released immediately into your electronic medical record. You may view this report before your referring provider. If you have questions, please contact your health care provider. Indication: Possible thickened gallbladder on CT TECHNIQUE: Ultrasound abdomen limited. Sonographic images of the right upper quadrant were obtained using jay-scale and color Doppler images. Comparison: Abdomen and pelvis CT 08/18/2023 FINDINGS: Gallbladder: Distended gallbladder with normal gallbladder wall thickness. No cholelithiasis. Trace gallbladder sludge questioned. Common bile duct: 7 mm. Impression: 1. Trace gallbladder sludge questioned although without evidence of cholelithiasis or gallbladder wall thickening on ultrasound. 2. Borderline diameter common duct. No choledocholithiasis seen although the distal duct is obscured by bowel gas. Dictated by Calixto Carreon MD @ 08/18/2023 3:48:32 PM (Electronically Signed)
--- NOTE | 2023-08-19 19:45 | PC.NURSE ---
Patient alert and orientedx4. Denies nausea, vomiting or diarrhea this shift. Denies pain. Fluids stooped and now saline locked. Sinus sommer on tele. In the morning, patient was noted to have a chowdhury on her neck, new orders obtained( See MAR). Chowdhury better( reduced in size and appearance) at the time this note was written. Patient's vital signs stable all shift
[2023-08-19] MEDS: ATORVASTATIN CALCIUM 40 MG TABLET PO (22:03)
[2023-08-19] MEDS: MONTELUKAST 10 MG TABLET PO (22:03)
[2023-08-20] VITALS (7 sets, daily range): BP systolic 121–156; BP diastolic 54–86; PULSE 53–85; RESP 18–20; TEMP 36.4–36.6; O2SAT 94–98
[2023-08-20 03:22] LABS: Cortisol, Serum 29.9 ug/dL
[2023-08-20] MEDS: diphenhydrAMINE 50 MG/ML inj 25 MG IVP (05:15)
[2023-08-20] MEDS: METHYLPREDNISOLONE SOD SUCC 62.5 MG/ML (125) 80 MG IVP ×2 (05:15→10:33)
[2023-08-20 06:07] LABS: Albumin* 3.7 g/dL (3.3-5.0)
--- NOTE | 2023-08-20 06:08 | PC.NURSE ---
End of shift [id number] - Pt alert, oriented, cooperative, and pleasant. Up to bathroom with standby assistance and walker. Continent of bladder, tolerating RA and regular diet/fluids. Pt denied pain, nausea, vomiting, dizziness. Previous irritated area on neck noted to have dissipated with no recurrence of color or texture related to previous discoloration. Pt observed to sleep during majority of shift, appears to be resting comfortably at end of shift.
[2023-08-20 06:09] LABS: Aspartate Amino Transferase* 59 U/L (12-35); Bilirubin Direct* 0.4 mg/dL (0.0-0.5); Bilirubin Total* 0.6 mg/dL (0.1-1.5); Total Protein* 6.1 g/dL (6.0-8.3)
[2023-08-20 06:10] LABS: Alanine Aminotransferase* 40 U/L (4-35); Alkaline Phosphatase* 56 U/L (40-150)
--- NOTE | 2023-08-20 06:11 | PC.NURSE ---
Expanse downtime occurred from approximately [id number] on 08/20/2023
[2023-08-20] MEDS: LEVOTHYROXINE 75 MCG TABLET 150 MCG PO (06:23)
[2023-08-20 07:04] LABS: Hemoglobin* 11.9 gm/dL (12.0-16.0); Mean Corpuscular HGB Conc 32 gm/dL (32-36); Mean Corpuscular Hemoglobin 27 pg (26-34); Mean Corpuscular Volume 83 fL (80-100); Platelet Count* 238 K/uL (140-440); Red Blood Count 4.46 m/uL (4.00-5.20); White Blood Count* 7.36 K/uL (4.50-11.00)
[2023-08-20 07:05] LABS: Slide Review Reflex No
[2023-08-20 07:07] LABS: Chloride* 108 mmol/L (96-114); Potassium* 3.8 mmol/L (3.6-5.1); Sodium* 140 mmol/L (135-149)
[2023-08-20 07:10] LABS: Anion Gap 5 mEq/L (7-15); Carbon Dioxide* 27 mmol/L (20-32); Creatinine* 0.8 mg/dL (0.5-1.5); Est. Creatinine Clearance* 46.77; Estimated Glomerular Filt Rate 75 ml/min
[2023-08-20 07:11] LABS: Blood Urea Nitrogen* 19 mg/dL (7-30); Calcium* 8.2 mg/dL (8.4-10.6); Glucose* 156 mg/dL (60-115)
[2023-08-20] MEDS: PARoxetine 20 MG TABLET 40 MG PO (08:31)
[2023-08-20] MEDS: APIXABAN 5 MG TABLET PO (08:31)
[2023-08-20] MEDS: POTASSIUM CHLORIDE 10 MEQ CAPSULE ER 20 MEQ PO (08:32)
[2023-08-20] MEDS: SODIUM CHLORIDE 0.9 % (FLUSH) 10 ML SYRINGE 5 ML IVF (08:32)
[2023-08-20] MEDS: ALBUTEROL SULFATE 2.5 MG/3 ML VIAL.NEB NEB (08:32)
[2023-08-20] MEDS: IPRAT-ALBUT 0.5-2.5 MG/3 ML NEB 1 NEB IH (10:24)
--- NOTE | 2023-08-20 10:39 | PM.DS1 ---
DS: Providers Provider Time Seen by Provider: 08:14 Date Seen: 08/20/23 Date of admission: 08/18/23 13:43 Primary care physician: Not a Local Provider Admitting Clinician: Jaclyn Lemus MD Consults: 08/18/23 14:04 Consult to Occupational Therapy [CONS] Routine Comment: Reason(s) for OT Consult:: Evaluate and Treat Any Restrictions?:: No Restrictions Consult to Physical Therapy [CONS] Routine Comment: Reason(s) for PT Consult:: Evaluate and Treat Any Restrictions?:: No Restrictions Consult to Head Waiter/Waitress [CONS] Routine Comment: Reason for Consult:: Social Service Consult 08/18/23 16:35 Consult to Physical Therapy [CONS] Routine Comment: Reason(s) for PT Consult:: Weakness Any Restrictions?:: No Restrictions Attending Physician on discharge: Marquita Talley MD Date of Discharge: 08/20/23 DS: Diagnosis Discharge Diagnosis (1) ARF (acute renal failure): Status: Resolved Problem details: - Suspect due to dehydration - 08/17 Cr 1.6 - 08/18 Cr 0.9 - 08/19 Cr 0.8 (2) Hives: Status: Acute Problem details: - Improving. Continue steroids, benadryl and famotidine for homegoing (3) Hyponatremia: Status: Resolved Problem details: Na 140 (4) Pulmonary nodule: Status: Acute Problem details: Incidental finding, right middle lobe pulmonary nodule measuring 3 mm, consider repeat CT at 12 months (5) Elevated hemoglobin A1c: Status: Acute Problem details: A1c 6.9 in March, 6.1 on admission. Outpatient clinical diabetes service visit on 07/27/23 completed after being advised to start metformin by her PCP. Diabetes service reviewed glucose POCs. Recommending dietary and exercise control. Is not taking metformin. (6) Hypertension: Status: Acute Problem details: Hold losartan and hydrochlorothiazide due to recent dehydration and hypotension. She is no longer having lightheadedness and now remembers that when she started losartan, she did not have any lightheadedness and it was not until she started on hydrochlorothiazide a few weeks after that that the lightheadedness began. Blood pressures here have mostly been in the 120s over 60s with an occasional higher blood pressure. At this point I have asked her to hold both losartan and hydrochlorothiazide until she sees her primary care provider to discuss whether not they should be restarted and perhaps consider only restarting 1 and if a 2nd agent is needed, may be consider a different blood pressure medications since dehydration and low potassium were an issue for her. 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 No abdominal pain, AMS). Continue to monitor Continue her hydrocortisone and add prednisone for stress dose steroids for few days. Follow-up with primary care provider early this week. (10) Dehydration: Status: Resolved Problem details: In setting of recent diarrhea, poor oral intake Creatinine 1.6, BUN 32, CO2 28 No change in urine output per patient report Symptomatically improving with IVF Cr improving. (11) Asthma: Status: Acute Problem details: Denies acute worsening symptoms; is chronically wheezy Not oxygen dependent. Does not use a CPAP Continue Trelegy ( will bring in), montelukast, scheduled DuoNebs, albuterol nebs p.r.n. (12) Lightheadedness: Status: Resolved Problem details: Onset following initiation of losartan and hydrochlorothiazide, acutely worsened in setting of above Monitor for improvement following IVF, holding of antihypertensives Orthostatics (13) Diarrhea: Status: Resolved Problem details: 08/14-08/15, no BM since. If recurs, consider GI panel/C. Diff No abdominal pain, cramping, no vomiting CT shows diverticulosis without diverticulitis, minimal gallbladder wall thickening noted. AST 89, ALT 57, total bili 1.1 Mag 2.1, phosphorus 2.9 Gallbladder ultrasound: some sludge, no evidence of stones, bile duct unremarkable. (14) Hypotension: Status: Resolved Problem details: In setting of recent diarrhea, dehydration, hypokalemia, adrenal insufficiency Responding to IVF, continue maintenance fluids and boluses as needed, electrolyte repletion Hold hydrochlorothiazide and losartan (started in May for white coat syndrome per patient) (15) Acute hypokalemia: Status: Resolved Problem details: - 08/17 Potassium 2.5 - 08/18 potassium 3.5. - 08/19 K 3.8 (16) Hyperlipidemia: Status: Chronic Problem details: Continue statin DS: Summary Hospital Course Hospital Course: Per H&P: Kendra Martinez is a 77 year old female past medical history significant for hypertension, hyperlipidemia, elevated A1c (not currently being treated for diabetes mellitus), hypothyroidism, adrenal insufficiency status post pituitary tumor resection, atrial fibrillation on chronic anticoagulation is admitted medical floor from the ED for further management hypotension, hyperkalemia, dehydration. Patient is seen with at bedside. Tells me she started losartan and hydrochlorothiazide in May for blood pressures thought to be white coat syndrome. Since that time, has had significant lightheadedness and dizziness, needing to change positions slowly to decrease symptoms. Has noted some fatigue. Earlier this week complained of increasing fatigue, weakness. Onset of diarrhea Monday with 1 episode following by several episodes Monday. None since. Denies bloody or black stools. Is on an anticoagulant. Denies abdominal pain or cramping. No colic pain. Has had some intermittent nausea without vomiting. Decreased appetite with poor oral intake. Has continued to urinate normally. Denies headaches. Endorses dizziness and lightheadedness since May. Denies recent fevers chills or sweats. Denies chest pain. Denies shortness of breath or coughing worse than normal. Uses her DuoNebs twice daily. Denies peripheral swelling. In the ED, initial saturations noted to be <90% briefly. Has not required ongoing oxygen supplementation. Systolic blood pressures <90, improving with IVF. Afebrile. No leukocytosis, lactate unremarkable. CXR without acute infectious/inflammatory findings. Triple swab negative. UA unremarkable. ACS ruled out. It is again noted that her GI symptoms had completely resolved by the time she came to the hospital. After getting fluid and IV hydrocortisone, blood pressure and symptoms improved. The next hospital day she was feeling very well, but had noticed a rash that started on her lower left neck overnight and I also saw spot on the right lower perioral area. I started her on IV Solu-Medrol, IV Benadryl, and oral famotidine. Her rash started to improve fairly quickly after getting those medications. This rash appears to be more consistent with hives than cellulitis. It was not warm or tender. She noted a lot of anxiety surrounding her health, having had chronic health issues since the age of 24. On the day of discharge she was feeling very well and her rash continue to improve. Just after the nurse did all of the discharge paperwork, the patient started to feel a little scratchiness in her throat and was very concerned about this. I went to assess her and noted that the quality of her voice was unchanged, she had no appreciable change in the rash, although she did seem a little diaphoretic. We rechecked her vitals and they were stable. These symptoms quickly resolved. She told us that she had taken some oral hydrocortisone that she had in her purse totaling 10 mg. She strongly desired to still go home and was feeling totally back to normal by that point. She was no longer diaphoretic. She was then discharged home. Incidental finding, right middle lobe pulmonary nodule measuring 3 mm, consider repeat CT at 12 months Time Spent with Patient Time attestation: Total time spent providing and/or coordinating discharge services: Exam Narrative: Exam Narrative: General: No acute distress. Awake, alert, oriented x3. No pallor. No jaundice. Oropharynx: Clear. Mucous membranes moist. Cardiovascular: Regular rate and rhythm. No murmurs, gallops, or rubs. Respiratory: Clear to auscultation bilaterally. No wheezes or crackles. Abdomen: Bowel sounds present. Soft, nondistended, nontender. Extremities: No pedal edema. Skin: Mild erythema right lower perioral area and the left lower neck/upper chest is 75% better than it was yesterday. No warmth or tenderness of these areas is appreciated. Const: Vital Signs, click to edit/add: Vital Signs - 24 hr 08/19/23 11:37 08/19/23 15:00 08/19/23 15:00 Temperature 97.7 F Pulse Rate 52 L Pulse Rate [Left P ulse Oximeter] 51 L 56 L Respiratory Rate 18 Blood Pressure [Le ft Arm] 115/84 125/65 Pulse Oximetry 99 93 Oxygen Delivery Me thod Room Air Room Air 08/19/23 15:00 08/19/23 20:47 08/20/23 00:13 Temperature 97.5 F L Pulse Rate Pulse Rate [Left P ulse Oximeter] 56 L 52 L 59 L Respiratory Rate 18 20 20 Blood Pressure [Le ft Arm] 129/73 132/76 Pulse Oximetry 95 94 Oxygen Delivery Me thod Room Air Room Air 08/20/23 00:15 08/20/23 05:57 08/20/23 07:00 Temperature Pulse Rate 61 53 L Pulse Rate [Left P ulse Oximeter] 70 Respiratory Rate 20 Blood Pressure [Le ft Arm] 156/86 H Pulse Oximetry 94 Oxygen Delivery Me thod Room Air DS: Data Data Completed and Pending Completed studies during hospitalization: 08/18/2023 EKG: Normal sinus rhythm, 60 beats per minute, left axis deviation, incomplete right bundle-branch block, anterior septal infarct, age undetermined. Ordering Physician: Ha Vaz M.D. Date of Service: 08/18/23 Procedure(s): XR chest 1V portable Accession Number(s): [id number] cc: Ha Vaz M.D.; Provider,Not a Local~ For Patients: As a result of the Cures Act, medical imaging exams and procedure reports are released immediately into your electronic medical record. You may view this report before your referring provider. If you have questions, please contact your health care provider. Indication Wheezes Technique One view(s) of the chest Comparison Chest radiograph on June 09, 2023 and December 12, 2022 Findings The cardiomediastinal silhouette and pulmonary vasculature are unremarkable. There is no focal airspace consolidation, pleural effusion, or pneumothorax. No displaced fractures. Lumbar scoliosis and degenerative changes of the spine. 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 Impression No acute cardiopulmonary process. Dictated by Perez Olmos MD @ 08/18/2023 10:44:09 AM (Electronically Signed) Ordering Physician: Ha Vaz M.D. Date of Service: 08/18/23 Procedure(s): CT abdomen pelvis w con Accession Number(s): [id number] cc: Ha Vaz M.D.; Provider,Not a Local~ For Patients: As a result of the s Act, medical imaging exams and procedure reports are released immediately into your electronic medical record. You may view this report before your referring provider. If you have questions, please contact your health care provider. INDICATION: Hypotension TECHNIQUE: Axial images were obtained from the diaphragm to the pubic symphysis. Reformats were obtained in the coronal and sagittal plane. IV Contrast: 93 cc Isovue 370 Oral Contrast: None COMPARISON: None. FINDINGS: Lower chest: Scattered areas of discoid atelectasis within the right lower lobe and right middle lobe. 3 millimeter noncalcified pulmonary nodule in the right middle lobe (3, 7). Liver: Unremarkable. Normal in size and attenuation. No masses. Gallbladder and bile ducts: Slight gallbladder wall thickening questioned (series 2, image 56). Spleen: Unremarkable. Normal in size without mass. Pancreas: Unremarkable. No mass or inflammation. Adrenal glands: Unremarkable. No nodules. Kidneys: Unremarkable. No masses, stones, or hydronephrosis. Vasculature: Atherosclerosis without abdominal aortic aneurysm. GI tract: The stomach is decompressed and unremarkable. No dilated loops of large or small intestine. Normal appendix. Colonic diverticulosis. Pelvis: The bladder is unremarkable. 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 IMPRESSION: 1. Minimal gallbladder wall thickening questioned. This is equivocal although right upper quadrant ultrasound is suggested for further characterization. 2. Colonic diverticulosis without CT evidence of diverticulitis. 3. Indeterminate right middle lobe pulmonary nodule measuring 3 millimeters. Management as per Fleischner society criteria below. SOCIETY GUIDELINES - SOLID NODULES: SINGLE LOW RISK - nodule less than 6 mm: No routine follow-up. SINGLE HIGH RISK - nodule less than 6 mm: Optional CT at 12 months. Please note that all CT scans at this facility use dose modulation, iterative reconstruction, and/or weight-based dosing when appropriate to reduce radiation dose to as low as reasonably achievable. Dictated by Calixto Carreon MD @ 08/18/2023 1:32:00 PM (Electronically Signed) Ordering Physician: Radha OLIVAREZ Date of Service: 08/18/23 Procedure(s): US abdomen limited Accession Number(s): [id number] cc: Radha OLIVAREZ; Provider,Not a Local~ For Patients: As a result of the Cures Act, medical imaging exams and procedure reports are released immediately into your electronic medical record. You may view this report before your referring provider. If you have questions, please contact your health care provider. Indication: Possible thickened gallbladder on CT TECHNIQUE: Ultrasound abdomen limited. Sonographic images of the right upper quadrant were obtained using jay-scale and color Doppler images. Comparison: Abdomen and pelvis CT 08/18/2023 FINDINGS: Gallbladder: Distended gallbladder with normal gallbladder wall thickness. No cholelithiasis. Trace gallbladder sludge questioned. Common bile duct: 7 mm. Impression: 1. Trace gallbladder sludge questioned although without evidence of cholelithiasis or gallbladder wall thickening on ultrasound. 2. Borderline diameter common duct. No choledocholithiasis seen although the distal duct is obscured by bowel gas. Dictated by Calixto Carreon MD @ 08/18/2023 3:48:32 PM (Electronically Signed) Labs on day of discharge: Labs from last 24 hours 08/20/23 08/18/23 05:45 10:22 WBC 7.36 RBC 4.46 Hgb 11.9 L Hct 37.0 MCV 83 MCH 27 MCHC 32 Plt Count 238 Sodium 140 Potassium 3.8 Chloride 108 Carbon Dioxide 27 Anion Gap 5 L BUN 19 Creatinine 0.8 Estimated Creat Clear 46.77 Estimated GFR 75 Glucose 156 H Calcium 8.2 L Total Bilirubin 0.6 Direct Bilirubin 0.4 AST 59 H ALT 40 H Alkaline Phosphatase 56 Total Protein 6.1 Albumin 3.7 Cortisol 29.9 Preliminary micro results at discharge 08/18/23 10:25 Blood Culture - Preliminary Blood NO GROWTH AFTER 48 HOURS 08/18/23 10:20 Blood Culture - Preliminary Blood NO GROWTH AFTER 48 HOURS Discharge Plan Discharge Disposition: Home, Self-Care Date of Admission: 08/18/23 13:43 Attending Provider on Discharge: Marquita Talley Primary Care Provider: Provider,Not a Local Condition: Improved Anticipated Discharge Date/Time: 08/20/23 11:18 Discharge Medications: New famotidine [Zantac-360 (famotidine)] 20 mg tablet 20 mg PO DAILY Qty: 7 0RF diphenhydramine HCl 25 mg capsule 25 mg PO Q6H PRNQty: 30 0RF Rx Instructions: Take until rash resolves prednisone 20 mg tablet 20 mg PO DAILY Qty: 3 0RF Continued ipratropium-albuterol 0.5 mg-3 mg(2.5 mg base)/3 mL solution for nebulization 1.5 ml inhalation BID Patient Comments: [NO ORIGINAL SIG] montelukast 10 mg tablet 10 mg PO HS Trelegy Ellipta 200-62.5-25 mcg blister with device 1 ea inhalation DAILY hydrocortisone 5 mg tablet 5 - 15 mg PO BID Rx Instructions: 15 MG IN THE AM 5 MG MID AFTERNOON levothyroxine 150 mcg tablet 150 mcg PO DAILY fenofibrate micronized 134 mg capsule 134 mg PO DAILY paroxetine HCl 40 mg tablet 40 mg PO DAILY albuterol sulfate 90 mcg/actuation HFA aerosol inhaler 1 inh inhalation Q4H PRN potassium chloride 10 mEq capsule, extended release 10 meq PO DAILY nitroglycerin 0.4 mg tablet, sublingual 0.4 mg sublingual Q5M PRN Eliquis 5 mg tablet 5 mg PO BID atorvastatin 40 mg tablet 40 mg PO HS metformin 500 mg tablet 500 mg PO BIDWM Held losartan 50 mg tablet 50 mg PO DAILY Hold Instructions: Resume on 08/23/23. Discontinued hydrochlorothiazide 25 mg tablet 25 mg PO DAILY Discharge Orders: Discharge Order (Routine); Ordered 08/20/23 Ordered By: Marquita Talley Patient Education: Famotidine (By mouth), Prednisone (By mouth), Diphenhydramine (By mouth), Dehydration (DC), Urticaria (GEN), Weakness (DC) Activity Level: No Restrictions Discharge Diet: Regular Follow Up Appointments: Bess Lucas [Other] - 08/22/23 10:00 am ([facility] for follow up. Primary care provider was unavailable during desired time frame. Check-in time is at 9:45 AM on Monday. ) Provider,Not a Local [Primary Care Provider] - () Forms: Fixed - Parking Tickets Info Instructions
--- NOTE | 2023-08-20 14:56 | PC.NURSE ---
Patient discharged home with spouse. She had an episode of anxiety related to RN completing discharge telling her that she had not been taking hydrocortisone this hospital visit. Patient had been advised that was was on solumedrol instead.When she understood that solumedrol was being used, anxiety resolved. Was dischrged home with spouse in stable condition. All dischrge education completed at time of discharge. Patient verbalized understanding.
== END 2023-08-20 15:00 | disposition home or self-care (01) ==
LOC: ED 11:36 → MEDSURG 13:44
PROVIDERS: Family Medicine; Admitting Provider Family Medicine; Emergency Provider Emergency Medicine Emergency Medical Services; Visit Provider Physician Assistant
DX: I95.9 Hypotension, unspecified (principal); E87.6 Hypokalemia; E86.0 Dehydration; R19.7 Diarrhea, unspecified; L50.9 Urticaria, unspecified; L53.9 Erythematous condition, unspecified; R91.1 Solitary pulmonary nodule; K57.90 Diverticulosis of intestine, part unspecified, without perforation or abscess without bleeding; R73.09 Other abnormal glucose; E27.40 Unspecified adrenocortical insufficiency; N17.9 Acute kidney failure, unspecified; I45.10 Unspecified right bundle-branch block; J45.909 Unspecified asthma, uncomplicated; I48.91 Unspecified atrial fibrillation; E03.9 Hypothyroidism, unspecified; I10 Essential (primary) hypertension; E78.5 Hyperlipidemia, unspecified; E87.1 Hypo-osmolality and hyponatremia; R42 Dizziness and giddiness; R53.1 Weakness; R11.0 Nausea; Z79.01 Long term (current) use of anticoagulants; Z79.84 Long term (current) use of oral hypoglycemic drugs; Z86.018 Personal history of other benign neoplasm; Z87.09 Personal history of other diseases of the respiratory system
CPT/HCPCS: 36415; 71045; 74177; 76705; 80048; 80076; 81001; 82024; 82533; 82803; 83036; 83605; 83735; 84100; 84132; 84443; 84484; 85025; 85027; 86140; 87040; 87631; 93005; 94640; 96361; 96365; 96375; 96376; 97116; 97161; 97165; 99285; 99291; G0378; A9270; J1200; J1720; J2405; J2919; J3480; J7030; J7120; Q9967; S0028

== ENCOUNTER 2023-08-28 16:37 | Emergency (ER) | payer OTHER, SELFPAY ==
[2023-08-28] VITALS (9 sets, daily range): BP systolic 116–146; BP diastolic 74–83; PULSE 49–65; RESP 16; TEMP 36.1; O2SAT 94–100; BMI 31.9
--- NOTE | 2023-08-28 17:06 | CRLHL7_ITS ---
For Patients: As a result of the Cures Act, medical imaging exams and procedure reports are released immediately into your electronic medical record. You may view this report before your referring provider. If you have questions, please contact your health care provider. INDICATION: Shortness of breath. Weakness, not otherwise described. COMPARISON: 08/18/2023 TECHNIQUE: 2 views. FINDINGS: Medical Devices: None. Lung Volumes: Adequate inspiration. No significant atelectasis. Lungs: Clear lungs. Pleura and Pleural spaces: No significant pleural effusion. No pneumothorax. Mediastinum: Stable. Bony Thorax and Soft Tissues: No significant interval findings. 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 Multiple contiguous fracture deformities of the right ribs below this level (the right lateral ribs are partially excluded from the [id number] on the frontal view of the chest). Dextroconvex curvature of the midthoracic spine unchanged. IMPRESSION: No radiographic findings to explain the clinical history. Incidental stable findings as above. Dictated by Dino mSith MD @ 08/28/2023 6:22:57 PM (Electronically Signed)
[2023-08-28 17:10] LABS: Appearance Urine Clear (Clear); Bilirubin Urine Negative (Negative); Blood Urine Negative (Negative); Color Urine Yellow (Yellow); Glucose Urine Negative (Negative); Ketones Urine Negative (Negative); Leukocyte Esterase Urine Negative (Negative); Nitrite Urine Negative (Negative); Protein Urine Negative (Negative); Urobilinogen Urine 0.2 (0.2-1.0)
--- NOTE | 2023-08-28 17:13 | ED_ITS ---
HPI - Weakness General Date Seen: 08/28/23 Chief complaint: Weakness Stated complaint: Weakness, sweating Time Seen by Provider: 08/28/23 16:40 Source: patient Mode of arrival: ambulatory Limitations: no limitations History of Present Illness HPI Narrative: patient is a 77-year-old female with a history of asthma, hypertension, diabetes, hypothyroidism presenting to the emergency department for fatigue. She was admitted for an acute kidney injury 10 days ago and discharged 8 days ago. She was also hypertensive at that time. They believe this is all secondary to dehydration. She was discharged was feeling well but then started feeling shortness of breath that she describes as mild. She has been using her albuterol inhalers at home and just finished a 5 day course of prednisone. She denies chest pain, headache, vision changes. Describes the weakness as more wanting to rest and sleep rather than feeling like she is too weak to walk. denies fevers, chills, for abdominal pain, diarrhea, constipation, dysuria. Was told to come in to be evaluated by her primary care provider. Related Data Home Medications ?Medication ?Instructions ?Recorded ?Confirmed albuterol sulfate 90 mcg/actuation 1 inh inhalation Q4H PRN 12/12/22 08/18/23 aerosol inhaler fenofibrate micronized 134 mg 134 mg PO DAILY 12/12/22 08/18/23 capsule fluticasone fur. 200 mcg-umeclid 1 ea inhalation DAILY 12/12/22 08/18/23 62.5 mcg-vilant 25 mcg inhalat.powder (Trelegy Ellipta) hydrocortisone 5 mg tablet 5 - 15 mg PO BID 12/12/22 08/18/23 ipratropium 0.5 mg-albuterol 3 mg 1.5 ml inhalation BID 12/12/22 08/18/23 (2.5 mg base)/3 mL nebulization soln levothyroxine 150 mcg tablet 150 mcg PO DAILY 12/12/22 08/18/23 montelukast 10 mg tablet 10 mg PO HS 12/12/22 08/18/23 paroxetine HCl 40 mg tablet 40 mg PO DAILY 12/12/22 08/18/23 apixaban 5 mg tablet (Eliquis) 5 mg PO BID 08/18/23 08/18/23 atorvastatin 40 mg tablet 40 mg PO HS 08/18/23 08/18/23 losartan 50 mg tablet 50 mg PO DAILY 08/18/23 08/18/23 metformin 500 mg tablet 500 mg PO BIDWM 08/18/23 08/18/23 nitroglycerin 0.4 mg sublingual 0.4 mg sublingual Q5M PRN 08/18/23 08/18/23 tablet potassium chloride 10 mEq 10 meq PO DAILY 08/18/23 08/18/23 capsule,extended release Previous Rx's ?Medication ?Instructions ?Recorded diphenhydramine HCl 25 mg capsule 25 mg PO Q6H PRN #30 caps 08/20/23 famotidine 20 mg tablet 20 mg PO DAILY #7 tabs 08/20/23 (Zantac-360 (famotidine)) prednisone 20 mg tablet 20 mg PO DAILY #3 tabs 08/20/23 prednisone 20 mg tablet See Rx Instructions .Route 08/28/23 .COMPLEX #15 tabs Allergies Allergy/AdvReac Type Severity Reaction Status Date / Time diltiazem Allergy Verified 08/18/23 10:13 lidocaine Allergy Hives Verified 08/18/23 21:55 Review of Systems Status of ROS: Reports: 10 or more systems reviewed and unremarkable except as noted in History and below [facility] Medical History Elevated hemoglobin A1c ?R73.09 - Other abnormal glucose (ICD-10) Hyperlipidemia ?E78.5 - Hyperlipidemia, unspecified (ICD-10) Hypertension ?I10 - Essential (primary) hypertension (ICD-10) Hypothyroidism ?E03.9 - Hypothyroidism, unspecified (ICD-10) Atrial fibrillation ?I48.91 - Unspecified atrial fibrillation (ICD-10) History of pituitary tumor ?Z87.898 - Personal history of other specified conditions (ICD-10) Adrenal insufficiency ?E27.40 - Unspecified adrenocortical insufficiency (ICD-10) Pneumonia ?J18.9 - Pneumonia, unspecified organism (ICD-10) Shortness of breath ?R06.02 - Shortness of breath (ICD-10) Social History What is your current living situation?: I presently have a place to live Problems where you live: no known problems Problems where you live details: none In the past 12 months, utilities in danger of being shut off: no In past 12 months, lack of transportation kept you from medical appts, meetings, work, or getting things needed for daily living: no In the past 12 mos, have been you worried that your food would run out before you had money to buy more?: never true In the past 12 mos, the food you bought just didn't last and you didn't have money to buy more?: never true Smoking Status: Never smoker Do you use any of these nicotine containing products: None How often do you have a drink containing alcohol: never AUDIT-C Alcohol total score: 0 Non-prescribed substance use: denies use How often does anyone, including family, friends and others, physically hurt you : never How often does anyone, including family, friends and others, insult or talk down to you: never How often does anyone, including family, friends and others, threaten you with harm: never How often does anyone, including family, friends and others, scream or curse at you: never Exam Narrative: Exam Narrative: Const: Well-nourished, Well-developed, in mild distress Eyes: PERRL, no conjunctival injection, and symmetrical lids HENT: Atraumatic external nose and ears. Moist mucous membranes. Neck: Symmetric, trachea midline, No thyromegaly. CVS: RRR, No murmurs or gallops. Peripheral pulses 2+ and equal in all extremities RESP: Mildly increased respiratory effort with diffuse wheezing GI: Nontender/Nondistended, No rebound or guarding. MSK:Extremities w/o deformity, Normal Active ROM Skin: Warm, Dry. No rashes or lesions. Neuro: Normal Muscle tone, No focal neurological deficits. Psych: Awake, Alert, & Oriented x3. Appropriate mood and affect. Const: Vital Signs, click to edit/add: Vital Signs - 24 hr 08/28/23 16:44 08/28/23 17:29 08/28/23 17:30 Temperature 96.9 F L Pulse Rate 54 L 49 L Pulse Rate [Pulse Oximeter] 65 Respiratory Rate 16 Blood Pressure Blood Pressure [Ri ght Upper Arm] 116/75 Pulse Oximetry 99 100 96 Oxygen Delivery Me thod Room Air 08/28/23 17:32 08/28/23 18:00 08/28/23 18:01 Temperature Pulse Rate 60 55 L 51 L Pulse Rate [Pulse Oximeter] Respiratory Rate Blood Pressure 131/74 138/83 Blood Pressure [Ri ght Upper Arm] Pulse Oximetry 94 97 98 Oxygen Delivery Me thod Course Vital Signs Vital signs: Initial Vital Signs Temperature 96.9 F L 08/28/23 16:44 Temperature Source Temporal Artery Scan 08/28/23 16:44 Pulse Rate 65 08/28/23 16:44 Respiratory Rate 16 08/28/23 16:44 Blood Pressure 116/75 08/28/23 16:44 Blood Pressure Mean 88 08/28/23 16:44 Pulse Oximetry 99 08/28/23 16:44 Oxygen Delivery Method Room Air 08/28/23 16:44 Vital Signs Temperature 96.9 F L 08/28/23 16:44 Pulse Rate 65 08/28/23 16:44 Respiratory Rate 16 08/28/23 16:44 Blood Pressure 116/75 08/28/23 16:44 Pulse Oximetry 99 08/28/23 16:44 Oxygen Delivery Method Room Air 08/28/23 16:44 Temperature 96.9 F L 08/28/23 16:44 Pulse Rate 51 L 08/28/23 18:01 Respiratory Rate 16 08/28/23 16:44 Blood Pressure 138/83 08/28/23 18:01 Pulse Oximetry 98 08/28/23 18:01 Oxygen Delivery Method Room Air 08/28/23 16:44 Medications Administered Medications: Discontinued Medications Generic Name Dose Route Start Last Admin Trade Name Freq PRN Reason Stop Dose Admin Albuterol 2.5 mg 08/28/23 17:04 08/28/23 17:25 Albuterol Sulfate 2.5 Mg/3 Ml Vial.Neb NEB 08/28/23 17:05 2.5 mg ONCE ONE Administration MDM - Weakness MDM Narrative Medical decision making narrative: patient is a 77-year-old female presenting to the emergency department for fatigue. Based on my initial physical examination this does seem to be more asthma related as she is very wheezy and is overall looks like she is having increased work of breathing compared to what I would expect her baseline to be. I will order a CBC, BMP, urinalysis, troponin, BNP, magnesium, chest x-ray to look for other possible causes. These include pneumonia, pneumothorax, CAD, heart failure, electrolyte abnormalities, UTI. Will give her around of albuterol to see if it helps with her symptoms. Lab work all returned showing no concerning abnormalities. Her creatinine within normal limits. Potassium is only very slightly low at 3.4. BNP within normal limits and no signs of CHF. Urinalysis shows no signs of UTI. Troponin EKG shows no concerning abnormalities. EKG reviewed by myself and the radiologist shows no concerning abnormalities. I went back to be re-evaluated her the wheezing has improved she states she is feeling much better. States she was taking her regular breathing treatments at home but has not been doing her p.r.n. albuterol could she did not realize it was a asthma exacerbation causing her symptoms. States she feels much better and feels safe to go home. I offered her another breathing treatment as there is still some wheezing but she states she can take it at home. 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 Considering she just had a prescription for 5 day burst of steroids I will give her another prescription and tapered dose. First dose will be given in the emergency department. Lab Data Labs: Lab Results 08/28/23 08/28/23 Range/Units 16:55 17:10 WBC 11.72 H (4.50-11.00) K/uL RBC 4.76 (4.00-5.20) m/uL Hgb 12.6 (12.0-16.0) gm/dL Hct 40.0 (33.0-51.0) % MCV 84 (80-100) fL MCH 27 (26-34) pg MCHC 32 (32-36) gm/dL RDW Coeff of Reena 15.8 H (11.5-15.5) % Plt Count 337 (140-440) K/uL Neut % (Auto) 85.0 H (42.0-72.0) % Lymph % (Auto) 7.3 L (20-44) % [place] % (Auto) 5.6 (0.0-11.0) % Eos % (Auto) 0.1 (0.0-7.0) % Baso % (Auto) 0.0 (0.0-3.0) % Neut # (Auto) 10.00 H (1.7-7.0) K/uL Lymph # (Auto) 0.90 (0.90-2.90) K/uL [place] # (Auto) 0.70 (0.00-0.90) K/UL Eos # (Auto) 0.00 (0.00-0.50) K/uL Baso # (Auto) 0.00 (0.00-0.30) K/uL Abs Immat Gran (auto) 0.20 (0.00-0.30) K/uL Imm/Tot Granulo (auto) 2.0 % Sodium 137 (135-149) mmol/L Potassium 3.4 L (3.6-5.1) mmol/L Chloride 100 (96-114) mmol/L Carbon Dioxide 33 H (20-32) mmol/L Anion Gap 4 L (7-15) mEq/L BUN 32 H (7-30) mg/dL Creatinine 0.8 (0.5-1.5) mg/dL Estimated Creat Clear 46.77 Estimated GFR 75 ml/min Glucose 132 H (60-115) mg/dL Calcium 9.0 (8.4-10.6) mg/dL Magnesium 2.0 (1.5-2.6) mg/dL NT-Pro-B Natriuret Pep 606 pg/mL Urine Color Yellow (Yellow) Urine Appearance Clear (Clear) Urine pH 6.0 (5.0-8.5) Ur Specific [place] 1.010 (1.000-1.030) Urine Protein Negative (Negative) Urine Glucose (UA) Negative (Negative) Urine Ketones Negative (Negative) Urine Blood Negative (Negative) Urine Nitrite Negative (Negative) Urine Bilirubin Negative (Negative) Urine Urobilinogen 0.2 (0.2-1.0) Ur Leukocyte Esterase Negative (Negative) Urine RBC 0-2 (0-2) Urine WBC 0-2 (0-5) Ur Squamous Epith Cells Few (None-Few) Urine Bacteria None (None) POC Troponin I 0.02 (0.01-0.04) ng/ml ECG Data Attestation: I personally reviewed and interpreted this ECG as follows: Prior ECG tracings: available for review Interpretation: Normal sinus rhythm with a rate of 64 beats per minute, normal intervals, normal axis, no ST or T-wave abnormalities. There is a PAC. Discharge Plan Discharge Clinical Impression: Asthma Qualifiers: Asthma severity: unspecified severity Asthma persistence: unspecified Asthma co mplication type: unspecified Qualified Code(s): J45.909 - Unspecified asthma, uncomplicated Patient Disposition: Home, Self-Care Condition: Improved Instructions: Asthma (DC) Additional Instructions: I believe your symptoms are related to an asthma exacerbation. Start using year p.r.n. 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 Return to emergency department for any new or worsening symptoms. Prescriptions: New prednisone 20 mg tablet See Rx Instructions .ROUTE .COMPLEX Qty: 15 0RF Rx Instructions: 50 mg (2.5 pills) 08/28-08/29 40 mg (2 pills) 08/30-08/31 30 mg (1.5 pills) 09/01-09/02 20 mg (1 pill) 09/03-09/04 10 mg (0.5 pill) 09/05-09/06 No Action ipratropium-albuterol 0.5 mg-3 mg(2.5 mg base)/3 mL solution for nebulization 1.5 ml inhalation BID Patient Comments: [NO ORIGINAL SIG] montelukast 10 mg tablet 10 mg PO HS Trelegy Ellipta 200-62.5-25 mcg blister with device 1 ea inhalation DAILY hydrocortisone 5 mg tablet 5 - 15 mg PO BID Rx Instructions: 15 MG IN THE AM 5 MG MID AFTERNOON levothyroxine 150 mcg tablet 150 mcg PO DAILY fenofibrate micronized 134 mg capsule 134 mg PO DAILY paroxetine HCl 40 mg tablet 40 mg PO DAILY albuterol sulfate 90 mcg/actuation HFA aerosol inhaler 1 inh inhalation Q4H PRN losartan 50 mg tablet 50 mg PO DAILY Hold Instructions: Resume on 08/23/23. potassium chloride 10 mEq capsule, extended release 10 meq PO DAILY nitroglycerin 0.4 mg tablet, sublingual 0.4 mg sublingual Q5M PRN Eliquis 5 mg tablet 5 mg PO BID atorvastatin 40 mg tablet 40 mg PO HS metformin 500 mg tablet 500 mg PO BIDWM famotidine [Zantac-360 (famotidine)] 20 mg tablet 20 mg PO DAILY Qty: 7 0RF diphenhydramine HCl 25 mg capsule 25 mg PO Q6H PRNQty: 30 0RF Rx Instructions: Take until rash resolves prednisone 20 mg tablet 20 mg PO DAILY Qty: 3 0RF Follow Up/Referrals: Provider,Not a Local [Primary Care Provider] - Stand Alone Forms: MyHealth Info Instructions
[2023-08-28 17:24] LABS: RBC Urine 0-2 (0-2); Squamous Epithelial Cell Urine Few (None-Few); WBC Urine 0-2 (0-5)
[2023-08-28] MEDS: ALBUTEROL SULFATE 2.5 MG/3 ML VIAL.NEB NEB (17:25)
[2023-08-28 17:26] LABS: Eosinophils Percent Auto 0.1 % (0.0-7.0); Hemoglobin* 12.6 gm/dL (12.0-16.0); Lymphocytes Percent Auto 7.3 % (20-44); Mean Corpuscular HGB Conc 32 gm/dL (32-36); Mean Corpuscular Hemoglobin 27 pg (26-34); Mean Corpuscular Volume 84 fL (80-100); Monocytes Percent Auto 5.6 % (0.0-11.0); Platelet Count* 337 K/uL (140-440); RDW Coefficient of Variation % 15.8 % (11.5-15.5); Red Blood Count 4.76 m/uL (4.00-5.20); White Blood Count* 11.72 K/uL (4.50-11.00)
[2023-08-28 17:30] LABS: Troponin, Point-of-Care* 0.02 ng/ml (0.01-0.04)
[2023-08-28 17:31] LABS: Slide Review Reflex No
[2023-08-28 17:40] LABS: Chloride* 100 mmol/L (96-114); Sodium* 137 mmol/L (135-149)
[2023-08-28 17:41] LABS: Potassium* 3.4 mmol/L (3.6-5.1)
[2023-08-28 17:43] LABS: Creatinine* 0.8 mg/dL (0.5-1.5); Est. Creatinine Clearance* 46.77; Estimated Glomerular Filt Rate 75 ml/min
[2023-08-28 17:44] LABS: Anion Gap 4 mEq/L (7-15); Blood Urea Nitrogen* 32 mg/dL (7-30); Carbon Dioxide* 33 mmol/L (20-32); Glucose* 132 mg/dL (60-115)
[2023-08-28 17:55] LABS: NT Pro B Type NatriureticPept* 606 pg/mL
[2023-08-28] MEDS: predniSONE 20 MG TABLET 60 MG PO (18:43)
== END 2023-08-28 18:56 | disposition home or self-care (01) ==
PROVIDERS: Emergency Provider Student in an Organized Health Care Education/Training Program
DX: J45.909 Unspecified asthma, uncomplicated (principal)
CPT/HCPCS: 36415; 71046; 80048; 81001; 83735; 83880; 84484; 85025; 94640; 99283; 99284; J7512

== ENCOUNTER 2024-05-27 18:26 | Emergency (ER) | payer OTHER, SELFPAY ==
[2024-05-27 18:35] VITALS: BP 131/79; PULSE 95; RESP 18; TEMP 35.8; O2SAT 97
--- NOTE | 2024-05-27 20:28 | CRLHL7_ITS ---
For Patients: As a result of the Cures Act, medical imaging exams and procedure reports are released immediately into your electronic medical record. You may view this report before your referring provider. If you have questions, please contact your health care provider. INDICATION: Shortness of breath TECHNIQUE: Chest radiograph 2 views COMPARISON: 08/28/2023 FINDINGS: Mediastinum: The mediastinum is normal in appearance. The heart silhouette is normal in size and morphology. Lung: Bilateral pulmonary hyperinflation and lucency is noted. No sign of pleural effusion seen. No pneumothorax is identified. Bone and Soft tissue: Dextroscoliosis of the thoracic spine is noted. 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 IMPRESSION: 1. Bilateral pulmonary hyperinflation and lucency is noted. This is suggestive of moderate, stable pulmonary emphysema. Dictated by Ruperto Matthews MD @ 05/27/2024 10:33:35 PM Dictated by: Ruperto Matthews MD @ 05/27/2024 22:33:38 (Electronically Signed)
[2024-05-27 20:36] VITALS: BP 138/90; PULSE 81; RESP 16; O2SAT 96
[2024-05-27 21:21] LABS: PCR FLU A POSITIVE PCR FLU A (Negative); PCR FLU B Negative PCR FLU B (Negative); PCR RSV Negative PCR RSV (Negative); SARS PCR* Negative SARS-CoV-2 (Negative)
--- NOTE | 2024-05-27 22:58 | ED_ITS ---
HPI - General Adult General Date Seen: 05/27/24 Chief complaint: Shortness of Breath/Dyspnea Stated complaint: Difficulty Breathing Time Seen by Provider: 05/27/24 21:59 History of Present Illness HPI narrative: 78 yo F with a past medical history of asthma, 1 prior episode of paroxysmal atrial fibrillation, hypertension, hyperlipidemia, hypothyroidism, and previous community-acquired pneumonia. She presents to the ER tonight feeling short of breath. She has actually been sick for 5 days, with symptoms beginning last . Symptoms have included a mild cough with some light green sputum. She has not had a fever or sore throat. She is having a cough with light green sputum. She has a history of asthma, and with the cough had been feeling more chest tightness. She had been using her home albuterol inhaler and nebulizer but did not notice any improvement after those meds at home. With the chest tightness today, she called her doctor who told her to come here to the ER. She subsequently called 911. She did receive a DuoNeb from EMS, and states that made it significant improvement for her breathing. Sats were 97% on room air She has not had any vomiting or diarrhea. No abdominal pain. No chest pain. Related Data Home Medications ?Medication ?Instructions ?Recorded ?Confirmed albuterol sulfate 90 mcg/actuation 1 inh inhalation Q4H PRN 12/12/22 05/27/24 aerosol inhaler fenofibrate micronized 134 mg 134 mg PO DAILY 12/12/22 05/27/24 capsule fluticasone fur. 200 mcg-umeclid 1 ea inhalation DAILY 12/12/22 05/27/24 62.5 mcg-vilant 25 mcg inhalat.powder (Trelegy Ellipta) hydrocortisone 5 mg tablet 5 - 15 mg PO BID 12/12/22 05/27/24 ipratropium 0.5 mg-albuterol 3 mg 1.5 ml inhalation BID 12/12/22 05/27/24 (2.5 mg base)/3 mL nebulization soln levothyroxine 150 mcg tablet 150 mcg PO DAILY 12/12/22 05/27/24 montelukast 10 mg tablet 10 mg PO HS 12/12/22 05/27/24 paroxetine HCl 40 mg tablet 40 mg PO DAILY 12/12/22 05/27/24 apixaban 5 mg tablet (Eliquis) 5 mg PO BID 08/18/23 05/27/24 atorvastatin 40 mg tablet 40 mg PO HS 08/18/23 05/27/24 losartan 50 mg tablet 50 mg PO DAILY 08/18/23 05/27/24 nitroglycerin 0.4 mg sublingual 0.4 mg sublingual Q5M PRN 08/18/23 05/27/24 tablet potassium chloride 10 mEq 10 meq PO DAILY 08/18/23 05/27/24 capsule,extended release Previous Rx's ?Medication ?Instructions ?Recorded diphenhydramine HCl 25 mg capsule 25 mg PO Q6H PRN #30 caps 08/20/23 Allergies Allergy/AdvReac Type Severity Reaction Status Date / Time Sulfa (Sulfonamide Allergy Unknown Verified 05/27/24 18:45 Antibiotics) diltiazem Allergy Verified 08/18/23 10:13 lidocaine Allergy Hives Verified 08/18/23 21:55 PFSH PFSH Medical History Elevated hemoglobin A1c ?R73.09 - Other abnormal glucose (ICD-10) Hyperlipidemia ?E78.5 - Hyperlipidemia, unspecified (ICD-10) Hypertension ?I10 - Essential (primary) hypertension (ICD-10) Hypothyroidism ?E03.9 - Hypothyroidism, unspecified (ICD-10) Atrial fibrillation ?I48.91 - Unspecified atrial fibrillation (ICD-10) History of pituitary tumor ?Z87.898 - Personal history of other specified conditions (ICD-10) Adrenal insufficiency ?E27.40 - Unspecified adrenocortical insufficiency (ICD-10) Pneumonia ?J18.9 - Pneumonia, unspecified organism (ICD-10) Shortness of breath ?R06.02 - Shortness of breath (ICD-10) Social History What is your current living situation?: I presently have a place to live Problems where you live: no known problems Problems where you live details: none In the past 12 months, utilities in danger of being shut off: no In past 12 months, lack of transportation kept you from medical appts, meetings, work, or getting things needed for daily living: no In the past 12 mos, have been you worried that your food would run out before you had money to buy more?: never true In the past 12 mos, the food you bought just didn't last and you didn't have money to buy more?: never true Smoking Status: Never smoker Do you use any of these nicotine containing products: None How often do you have a drink containing alcohol: never AUDIT-C Alcohol total score: 0 Non-prescribed substance use: denies use How often does anyone, including family, friends and others, physically hurt you : never How often does anyone, including family, friends and others, insult or talk down to you: never How often does anyone, including family, friends and others, threaten you with harm: never How often does anyone, including family, friends and others, scream or curse at you: never Exam Narrative: Exam Narrative: Constitutional: Appears well-developed and well-nourished. Alert. Conversant. Non toxic. HENT: Head: Atraumatic. Nose: Nose normal. Mouth/Throat: Oral mucosa is clear and moist. no trismus. Pharynx normal. Tonsils symmetric. No tonsillar enlargement, erythema, or exudate. Eyes: Conjunctivae normal. EOM normal. Pupils equal, round, and reactive to light. No scleral icterus. Neck: Normal range of motion. Neck supple. No tracheal deviation present. No JVD Cardiovascular: Normal rate, regular rhythm. No gallop. No friction rub. No murmur heard. Symmetric radial artery pulses Pulmonary/Chest: Effort normal. No stridor. No respiratory distress. No wheezes. No rales. No rhonchi . No tenderness. Abdominal: Soft. No distension. No mass. No tenderness. No rebound. No guarding. Musculoskeletal: RUE: Normal range of motion. No tenderness. No deformity LUE: Normal range of motion. No tenderness. No deformity RLE: Normal range of motion. No edema. No tenderness. No deformity LLE: Normal range of motion. No edema. No tenderness. No deformity Neurological: Alert and oriented to person, place, and time. Normal strength. CN II-VII intact. No sensory deficit. GCS eye subscore is 4. GCS verbal subscore is 5. GCS motor subscore is 6. Normal coordination Skin: Skin is warm and dry. No rash noted. No pallor. Normal capillary refill. Psychiatric: Normal mood. Normal affect. Very polite Const: Vital Signs, click to edit/add: Vital Signs - 24 hr 05/27/24 18:35 05/27/24 20:36 05/27/24 23:30 Temperature 96.5 F L Pulse Rate 81 67 Pulse Rate [Pulse Oximeter] 95 Respiratory Rate 18 16 18 Blood Pressure 138/90 H 147/104 H Blood Pressure [Ri ght Upper Arm] 131/79 Pulse Oximetry 97 96 98 Oxygen Delivery Me thod Room Air Room Air Room Air Course Vital Signs Vital signs: Initial Vital Signs Temperature 96.5 F L 05/27/24 18:35 Temperature Source Temporal Artery Scan 05/27/24 18:35 Pulse Rate 95 05/27/24 18:35 Pulse Rhythm Regular 05/27/24 18:35 Respiratory Rate 18 05/27/24 18:35 Blood Pressure 131/79 05/27/24 18:35 Blood Pressure Mean 96 05/27/24 18:35 Blood Pressure Position Sitting 05/27/24 18:35 Pulse Oximetry 97 05/27/24 18:35 Oxygen Delivery Method Room Air 05/27/24 18:35 Vital Signs Temperature 96.5 F L 05/27/24 18:35 Pulse Rate 95 05/27/24 18:35 Respiratory Rate 18 05/27/24 18:35 Blood Pressure 131/79 05/27/24 18:35 Pulse Oximetry 97 05/27/24 18:35 Oxygen Delivery Method Room Air 05/27/24 18:35 Temperature 96.5 F L 05/27/24 18:35 Pulse Rate 67 05/27/24 23:30 Respiratory Rate 18 05/27/24 23:30 Blood Pressure 147/104 H 05/27/24 23:30 Pulse Oximetry 98 05/27/24 23:30 Oxygen Delivery Method Room Air 05/27/24 23:30 Medications Administered Medications: Discontinued Medications Generic Name Dose Route Start Last Admin Trade Name Freq PRN Reason Stop Dose Admin Albuterol/Ipratropium 1 neb 05/27/24 23:16 05/27/24 23:20 Iprat-Albut 0.5-2.5 Mg/3 Ml Neb IH 05/27/24 23:17 1 neb ONCE ONE Administration Medical Decision Making MDM Narrative Medical decision making narrative: This patient presents for evaluation of shortness of breath and productive cough ongoing for 5 days.. This is consistent with an upper respiratory tract infection. Viral testing positive for influenza A. We will treat with Tamiflu given her medical comorbidities and high risk for severe illness. Fortunately though, at this point she is safe for outpatient treatment. There is no signs at this point of serious bacterial infection such as OM, RPA, epiglottitis, BEAN SPROUT GROWER, strep pharyngitis, pneumonia, sinusitis, meningitis, bacteremia, serious bacterial infection. Given medical history we did obtain chest x-ray which is fortunately negative for pneumonia. Also negative for other causes of shortness of breath such as pulmonary edema, pleural effusion, pneumothorax. There are no gastrointestinal symptoms at this point and no signs of dehydration. Along with her influenza she has having significant bronchospasm. Fortunately oxygen is in the high 90s on room air here in the ER. She noted marked improvement with a DuoNeb given by EMS. After couple of hours she did have some recurring wheezing lung sounds . Repeat neb lead to clinical improvement. At this point she is comfortable discharging home with her . I will send in a prescription for DuoNebs that she can use every 2-4 hours as needed tomorrow. Also were start her on a 5 day course of prednisone. Close followup with primary care physician is indicated. Return to ED for fever > 103, protracted vomiting, confusion, or other worsening. Lab Data Labs: Lab Results 05/27/24 Range/Units 20:36 SARS-CoV-2 (PCR) Negative SARS-CoV-2 (Negative) Influenza Type A (PCR) POSITIVE PCR FLU A A (Negative) Influenza Type B (PCR) Negative PCR FLU B (Negative) RSV (PCR) Negative PCR RSV (Negative) Imaging Data Chest x-ray: Attestation: I have reviewed the pertinent imaging results. Radiologist's impression: IMPRESSION: 1. Bilateral pulmonary hyperinflation and lucency is noted. This is suggestive of moderate, stable pulmonary emphysema. Discharge Plan Discharge Clinical Impression: Influenza A, Asthma attack Patient Disposition: Home, Self-Care Condition: Stable Instructions: Asthma (DC), Influenza (DC) Additional Instructions: As we discussed, to treat your asthma use your albuterol or DuoNeb inhaler every 2-4 hours for the next couple of days. normal start on prednisone tonight and take 40 mg daily for 5 days to help her asthma. If you have worsening trouble breath, low oxygen levels, chest pain, worsening cough, or any concerns, please come back to the ER or see your doctor right away. I suspect that influenza is causing your asthma exacerbation. To treat your influenza we will start you on Tamiflu. This is an antiviral to treat influenza. Your chest x-ray looks good. We do not see any sign of pneumonia tonight. Remember, if you have any worsening symptoms such as worsening trouble breathing, high fever, weakness, or any other concerns, please come back to the ER right away. Please recheck with her doctor next week. Prescriptions: No Action ipratropium-albuterol 0.5 mg-3 mg(2.5 mg base)/3 mL solution for nebulization 1.5 ml inhalation BID Patient Comments: [NO ORIGINAL SIG] montelukast 10 mg tablet 10 mg PO HS Trelegy Ellipta 200-62.5-25 mcg blister with device 1 ea inhalation DAILY hydrocortisone 5 mg tablet 5 - 15 mg PO BID Rx Instructions: 15 MG IN THE AM 5 MG MID AFTERNOON levothyroxine 150 mcg tablet 150 mcg PO DAILY fenofibrate micronized 134 mg capsule 134 mg PO DAILY paroxetine HCl 40 mg tablet 40 mg PO DAILY albuterol sulfate 90 mcg/actuation HFA aerosol inhaler 1 inh inhalation Q4H PRN losartan 50 mg tablet 50 mg PO DAILY potassium chloride 10 mEq capsule, extended release 10 meq PO DAILY nitroglycerin 0.4 mg tablet, sublingual 0.4 mg sublingual Q5M PRN Eliquis 5 mg tablet 5 mg PO BID atorvastatin 40 mg tablet 40 mg PO HS diphenhydramine HCl 25 mg capsule 25 mg PO Q6H PRNQty: 30 0RF Rx Instructions: Take until rash resolves Follow Up/Referrals: Provider,Not a Local [Primary Care Provider] - Stand Alone Forms: [employer] Info Instructions
[2024-05-27] MEDS: IPRAT-ALBUT 0.5-2.5 MG/3 ML NEB 1 NEB IH (23:20)
--- OUTSIDE RECORDS SUMMARY | 2024-05-27 23:24 | XMS_ITS | Encounter Summary ---
Author Organization Pending sale to [facility] Address [address] [place] [address] Care Team Providers Care Harbor Boat Pilot Name Role Phone StaffordMahad mcfarlane Primary Care Provider [phone] Reason for Visit * Reason Comments HEARTBEAT,FAST Encounter Details Date Type Department Care Team (Late st Contact Info) Description 05/27/2024 Nurse Triage Careline [address] [facility] [place], [place] [id number] Unassigned, Provider [address] [place] [address] HEARTBEAT,FAST Social History Tobacco Use Types Packs/Day Years Used Date Smoking Tobacco: Never Smokeless Tobacco: Never Alcohol Use Standard Drinks/Week Comments No 0 (1 standard drink = 0.6 oz pur e alcohol) PHQ-2 Answer Date Recorded PHQ-2 Score 0 10/16/2023 Financial Resource Strain Answer Date R ecorded Is it hard for you to pay fo r the very basics like food, housing, medical care or heating? No 04/10/2023 Food Insecurity Answer Date Recorded Does your food run out before you have the money to buy more? No 04/10/2023 Transportation Needs Answer Date Record ed Does a lack of transportatio n keep you from your medical appointments or from getting your medications? 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 No fever Reviewed pertinent medical history (as relates to the call): Yes Reviewed pertinent medications (as relates to the call): Yes Reason for Disposition MODERATE difficulty breathing (e.g., speaks in phrases, SOB even at rest, pulse 100-120) SEVERE difficulty breathing (e.g., struggling for each breath, speaks in single words, pulse > 120) Answer Assessment - Initial Assessment Questions 1. RESPIRATORY STATUS: Describe your breathing? (e.g., wheezing, shortness of breath, unable to speak, severe coughing) SOB 2. ONSET: When did this asthma attack begin? Got sick last 3. TRIGGER: What do you think triggered this attack? (e.g., URI, exposure to pollen or other allergen, tobacco smoke) URI Coughing is about the same, spit up the thick stuff 4. PEAK EXPIRATORY FLOW RATE (PEFR): Do you use a peak flow meter? If Yes, ask: What's the current peak flow? What's your personal best peak flow? 5. SEVERITY: How bad is this attack? - MILD: No SOB at rest, mild SOB with walking, speaks normally in sentences, can lie down, no retractions, pulse < 100. (GREEN Zone: PEFR 80-100%) - MODERATE: SOB at rest, SOB with minimal exertion and prefers to sit, cannot lie down flat, speaksin phrases, mild retractions, audible wheezing, pulse 100 to 120. (YELLOW Zone: PEFR 50-79%) - SEVERE: Struggling for each breath, speaks in single words, struggling to breathe, sitting hunched forward, retractions, usually loud wheezing, sometimes minimal wheezing because of decreased air movement, pulse > 120. (RED Zone: PEFR < 50%). Moderate 6. ASTHMA MEDICINES: What treatments have you tried? - INHALED QUICK RELIEF (RESCUE): What is your inhaled quick-relief medicine? (e.g., albuterol, salbutamol) Do you use an inhaler or a nebulizer? How frequently have you been using this medicine? - CONTROLLER ([id number]): Do you take an inhaled steroid? (e.g., Asmanex, Flovent, Pulmicort, Qvar) Hydrocoritsone 5 mg, Montilukast 7. INHALED QUICK-RELIEF TREATMENTS FOR THIS ATTACK: What treatments have you given yourself so far? and How many and how often? If using an inhaler, ask, How many puffs? Note: Routine treatments are 2 puffs every 4 hours as needed. Rescue treatments are 4 puffs repeated every 20 minutes, up to three times as needed. 8. OTHER SYMPTOMS: Do you have any other symptoms? (e.g., chest pain, coughing up yellow sputum, fever, runny nose) No chest Lt green color 9. O2 SATURATION MONITOR: Do you use an oxygen saturation monitor (pulse oximeter) at home? If Yes, What is your reading (oxygen level) today? What is your usual oxygen saturation reading? (e.g., 95%) 95 , pulse 90 10. : Is there any chance you are ? When was your last menstrual period? Protocols used: Asthma Rrmhqe-[id number]-PP, COVID-19 - Diagnosed or Eojffxmqf-[id number]-PA, Oxygen Monitoring and Cbvqhiy-XCGVS-HC Plan - do a neb, hard for pt to talk 5:34 PM calling pt back- was able to get oximeter to work and neb did not help her. Oxygen -- 85 oximeter Pulse is 95 Lisa Sinha RN 05/27/2024, 5:37 PM * Eve Katz - 05/27/2024 4:55 PM CDT Verified patient using 3 identifiers: Yes Caller reports the following red flag symptoms: Pt has noticed that her pulse is faster than usual,at about 90 bpm. She is wondering if that could be related to taking hydrocortisone? Pt also has a fib in the past. Plan: Transferred directly to a CareLine RN. documented in this encounter Plan of Treatment Upcoming Encounters Date Type Department Care Team (Late st Contact Info) Description 06/18/2024 10:00 AM CDT Appointment [facility] [address] [place] [address] [place] [address] [place] [address] 07/18/2024 8:00 AM CDT Appointment [facility] [address] Scan [address] [place] [phone] John Walton MD [address] [place] [address] [address] [place] [address] 07/30/2024 9:30 AM CDT [facility]ment [facility] [address] [place] [address] 07/30/2024 10:45 AM CDT Office Visit [facility] [address] [place] [address] John Walton MD [address] [place] [address] [address] [place] [address] documented as of this encounter Visit Diagnoses Not on filedocumented in this encounter Care Teams Harbor Boat Pilot Relationship Specialty [place] [address] [place] [address] PCP - General Internal Medicine 12/25/18 documented as of this encounter
--- OUTSIDE RECORDS SUMMARY | 2024-05-27 23:24 | XMS_ITS | Encounter Summary ---
Author Organization [facility] Address [address], [place] [address] Care Team Providers Care Forming Mill Operator Name Role Phone NydiaMahad Primary Care Provider Reason for Visit * Reason Comments Symptoms Encounter Details Date Type Department Care Team (Late st Contact Info) Description 05/27/2024 Telephone [facility] [address] [facility] [place], [place] [phone] John Walton MD [address] [facility] [address] [place], [place] [address] Symptoms Social History Tobacco Use Types Packs/Day Years [...] as of this encounter Nursing Notes * Fanta Martino LPN - 05/27/2024 11:03 AM CDT HIGH PRIORITY. PLEASE RESPOND WITHIN 24 HOURS. THANK YOU. Pulmonary Diagnosis: Moderate Asthma Pulmonary Provider: Dr Walton Pt calling today with c/o: the following symptoms started with a cold about a week ago and has gradually gotten worse. SOB: Yes Fever: No Wheezing: Yes Cough: Yes Sputum: Yes Color: light green Chest tightness: No Chest pain: No Sore throat: No Edema: No On O2? No Liters per Minute: NA O2 sat% 95% Recent steroids/antibiotics: No Current pulmonary medications: -Duonebs TID -Trelegy -Montelukast Comments or Recommendation given: pt is requesting a Prednisone taper and possibly an antibiotic Pharmacy: [facility] pharmacy in [place] Detailed Voicemail: Yes Dr Walton, please advise. Thank you documented in this encounter Plan of Treatment Upcoming Encounters Date Type Department Care Team (Late st Contact Info) Description 06/18/2024 10:00 AM CDT Appointment [facility] [address] [place] [address] [place] [address] [place] [address] 07/18/2024 8:00 AM CDT Appointment [facility] [place] [address] [address] [address] [place] [phone] John Walton MD [address] [facility] [address] [place] [address] 07/30/2024 9:30 AM CDT Appointment [facility] [address] [place] [address] 07/30/2024 10:45 AM CDT Office Visit [facility] [address] [place] [address] [place] [address] John Walton MD [address] [facility] [address] [place], [place] [address] documented as of this encounter Visit Diagnoses Not on filedocumented in this encounter Care Teams Forming Mill Operator Relationship Specialty [place] [address] [place] [phone] PCP - General Internal Medicine 12/25/18 documented as of this encounter
--- OUTSIDE RECORDS SUMMARY | 2024-05-27 23:24 | XMS_ITS | Encounter Summary ---
Author Organization [facility] Address [address], [place] [address] Care Team Providers Care Health Teacher Name Role Phone Keren Zuleta MD Primary Care Provider Reason for Visit * Reason Comments Refill hydrocortisone (BARBER EF) 5 MG tablet [Pharmacy Med Name: Hydrocortisone Oral Tablet 5 MG] Encounter Details Date Type Department Care Team (Late st Contact Info) Description 05/07/2024 Refill [facility] [address] [place], [place] [phone] Keren Zuleta MD [address] [place] [address] Refill (hydrocortisone (CORTEF) 5 MG tablet [Pharmacy Med Name: Hydrocortisone Oral Tablet 5 MG]) Social History Tobacco Use Types Packs/Day Years [...] appointments or from getting your medications? No 01/29/2 024 Comments No Sex and Gender Information Value Date Recorded Sex Assigned at Not on file Legal Sex Female 5:53 AM CDT Gender Identity Not on file Sexual Orientation Not on file documented as of this encounter Nursing Notes * Nina Montes LPN - 05/07/2024 11:12 AM CST Left voicemail stating message below. MBLER TRUCK TRAILER * Keren Zuleta MD - 05/07/2024 10:58 AM CST Please call patient. 30 days Rx sent to pharmacy. Will need appointment for future refill. MBLER TRUCK TRAILER * Adenike Be Xrwcomm - 05/07/2024 10:26 AM CST hydrocortisone (CORTEF) 5 MG tablet [Pharmacy Med Name: Hydrocortisone Oral Tablet 5 MG] Medication started: 06/25/2018 Last ordered by KEREN ZULETA: 10/16/2023 (204 days ago) QTY: 360, Refills: 1, Sig: take 3 tablets in morning and 1 tablet in afternoon. (changed) -> Unable to determine if sig has changed, review required. -> Medication cannot be delegated. Last qualifying visit: 10/16/2023 (with KEREN ZULETA) Next scheduled visit: None [facility] [employer] Embedded Refills, Reference: [id number], 05/07/2024 10:26:56 AM Guillermo KRAUSE: ANABEL Refill [facility] - Primary Care [[id number]] ([id number]) MBLER TRUCK TRAILER documented in this encounter Plan of Treatment Upcoming Encounters Date Type Department Care Team (Late st Contact Info) Description 06/18/2024 10:00 AM CDT Appointment [facility] [address] [place], [place] [phone] [place] [address] [place] [address] 07/18/2024 8:00 AM CDT Appointment Joann Cort[facility] [place] [address] Scan [address] [place] [phone] John Walton MD [address] [place] [address] [address] [place] [address] 07/30/2024 9:30 AM CDT Appointment [facility] [address] [place] [address] 07/30/2024 10:45 AM CDT Office Visit [facility] [address] [place] [address] John Walton MD [address] [place] [address] [address] [place] [address] documented as of this encounter Visit Diagnoses Not on filedocumented in this encounter Care Teams Health Teacher Relationship Specialty [place] [address] [place] [address] PCP - General Internal Medicine 12/25/18 documented as of this encounter
--- OUTSIDE RECORDS SUMMARY | 2024-05-27 23:24 | XMS_ITS | Encounter Summary ---
[facility] Organization [facility] Address [address] [address] Care Team Providers Care Instrumentation Technician Name Role Phone Keren Zuleta MD Primary Care Provider [phone] Reason for Visit * Reason Comments Refill fenofibrate (LOFIBRA ) 134 MG capsule [Pharmacy Med Name: Fenofibrate Micronized Oral Capsule 134 MG] Encounter Details Date Type Department Care Team (Late st Contact Info) Description 05/07/2024 Refill [facility] [address] [place], [place] [phone] [place] [id number] [place] [address] [id number] Refill (fenofibrate (LOFIBRA) 134 MG capsule [Pharmacy Med Name: Fenofibrate Micronized Oral Capsule 134 MG]) Social History Tobacco Use Types Packs/Day [...] as of this encounter Nursing Notes * Patricia Hong, RN - 05/09/2024 5:38 PM CST Refilled per standing order. ISH TEACHER * Kt Bewizard Xrwcomm - 05/07/2024 10:26 AM CST fenofibrate (LOFIBRA) 134 MG capsule [Pharmacy Med Name: Fenofibrate Micronized Oral Capsule 134 MG] Medication started: 05/11/2018 Last ordered by KEREN ZULETA: 04/17/2023 (386 days ago) QTY: 90, Refills: 3, Sig: take one (134mg)capsule by mouth by mouth once daily. (changed but equivalent) -> Refill x 6 months, qty: 90, refills: 1 (until due for an office visit) Last qualifying visit: 10/16/2023 (with KEREN ZULETA) Next scheduled visit: [facility] Embedded Refills, Reference: [id number], 05/07/2024 10:26:55 AM Guillermo KRAUSE: ANABEL Refill [facility] - Primary Care [[id number]] ([id number]) ISH TEACHER documented in this encounter Plan of Treatment Upcoming Encounters Date Type Department Care Team (Late st Contact Info) Description 06/18/2024 10:00 AM CDT Appointment [facility] [address] [place], [place] [address] [place] [address] [place] [id number] 07/18/2024 8:00 AM CDT Appointment Joann Cortés [place] [address] Scan [address] [place] [phone] [place] [address] [place] [address] [address] [place] [address] 07/30/2024 9:30 AM CDT [facility]ointment [facility] [address] [place] [address] 07/30/2024 10:45 AM CDT Office Visit [facility] [address] [place] [address] John Walton MD [address] [place] [address] [address] [place] [address] documented as of this encounter Visit Diagnoses Diagnosis Mixed hyperlipidemia (HRC) Mixed hyperlipidemia Secondary adrenal insufficiency (HRC) Glucocorticoid deficiency documented in this encounter Care Teams Instrumentation Technician Relationship Specialty [place] [address] [place] [address] PCP - General Internal Medicine 12/25/18 documented as of this encounter
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
--- OUTSIDE RECORDS SUMMARY | 2024-05-27 23:25 | XMS_ITS | Encounter Summary ---
Author Organization [facility] Address [address] [facility] [place] [address] Care Team Providers Care Dry Yard Worker Name Role Phone Avila Lemus MD Primary Care Provider [facility] Primary Care Provider Nick Perez MD Primary Care Provider [phone] Aylin Tsai MD Primary Care Provider [phone] Karol Kaiser MD Unavailable Rolando Garza MD Unavailable Rolando Garza MD Unavailable yAlin Tsai MD Unavailable [phone] Karol Kaiser MD Unavailable Rolando Garza MD Unavailable Mahad Stafford MD Primary Care Provider [phone] Slater, Anah E PA-C Unavailable [phone] Slater, Anah E PA-C Unavailable [phone] Rigo Alexander MD Unavailable Un available Slater, Anah E PA-C Unavailable [phone] Encounter Details Date Type Department Care Team (Late st Contact Info) Description 10/27/2002 [facility] [address] [place] [phone] Avila Lemus [place] [phone] ER ENCOUNTER (Primary Dx) Social History Tobacco Use Types Packs/Day Years Used Date Smoking Tobacco: Never Smokeless Tobacco: Never Alcohol Use Standard Drinks/Week Comments No 0 (1 standard drink = 0.6 oz pur e alcohol) Comments No Sex and Gender Information Value Date Recorded Sex Assigned at Not on file Legal Sex Female 3:25 AM INSPECTOR AIR CARRIER Gender Identity Not on file Sexual Orientation Not on file documented as of this encounter Progress Notes * 10/27/2002 11:59 PM CDTAddended by: HIMANSHU DRAPER on: 11/07/2002,3:21 PM Modules accepted: Progress Notes 00:0 0 Emergency Department Encounter-CHARLIE CHASE) [Entered: 00:00 Transcripti on ([facility])] : 43 CHIEF COMPLAINT: Dysuria. This is a 56-year-old female who describes hav ing dysuria, increase urine frequency and urgency and it started around 6:45 this morning. She states that she has had a history of urinary tract infection, but it has been several years since she had a last episode. Denies any fever, chills, neck stiffness, abdominal pain, back pain, no trauma. She did have some hematuria and that is what prompted her to come in for evaluation. The patient denies any diarrhea. PAST MEDICAL HISTORY: Surgeries: Pituitary removal. Illness: Crohn's. Osteoporosis. ALLERGIES: No known drug allergies. MEDICATIONS: Prozac. Deltasone. Synthroid. Fosamax. Pent asa, calcium. SOCIAL HISTORY: No alcohol or tobacco. FAMILY HISTORY: Noncontributory. PHYSICAL E XAMINATION: Temperature: 97.2. Blood Pressure: 143/94. Pulse: 89. Respiration: 16. Pulse oxim etry 97% on room air. HEENT: HEAD atraumatic, normocephalic. NECK supple. TRACHEA midline. LUNGS: Normal breath sounds without rhonchi, rales or wheezes. Cardiovascular: Regular rate and rhythm wi thout rubs, gallops or murmurs. ABDOMEN: Bowel sounds are positive. No tenderness, rebound or guar ding. EXTREMITIES: Pedal pulses +2/4, no edema. BACK: No CVA tenderness on percussion. Musculoske letal: +5/5 strength in the lower extremities bilaterally. In general, the patient in no acute dis tress, sitting comfortably. Skin: No petechia, rash or lesions. Lymph nodes: No inguinal adenopat hy or tenderness or cervical chain adenopathy to the NECK. PSYCHOLOGICAL: Patient is alert and orien priya x 3. Speech fluent and good affect. The patient's laboratory work is as follows: Blood leukocy te esterase moderate. Nitrates positive. WBCs 5 to 10. EMERGENCY DEPARTMENT COURSE: The patient o therwise was in no distress, sitting there comfortably. Had a lot of questions about how woman get u rinary tract infections and why. I explained to her about that. When I pushed hard on her suprapubi c area she had a little bit of tenderness, so she was given urethritis or cystitis. ASSESSMENT: Acu te cystitis. Also urine hesitancy/urgency. Patient will follow up at [facility] in 24-72 hours . Pyridium 100 mg every eight hours x 3 days. Cipro 500 mg every 12 hours x 5 days. Return if fever , chills, worsening or blood in the urine or severe pain or worsening symptoms. [id number]_ CHARLIE MATTHEW MD [place]: Document: [id number] [place], [place] Name: KENDRA MARTINEZ EMERGENCY ROOM ENCOUNTER Page 2 of 2 LCN: E RA DSC: 10/27/2002 [place], [place] Name: MR#: : Admit Date: KENDRA OWENS [id number] 1945 10/27/2002 Doctor: CHARLIE ZELAYA MD EMERGENCY ROOM ENCOUNTE R Page 1 of 2 Electronically filed by Himanshu Draper 11/07/2002 3:21 PM documented in this encounter Plan of Treatment Not on file documented as of this encounter Visit Diagnoses Diagnosis ER ENCOUNTER- Primary documented in this encounter Additional Health Concerns Infection Onset Date Last Indicated Resolved Time Rule Out COVID-19 02/14/2023 02/14/2023 02/14/2023 12:56 PM INSPECTOR AIR CARRIER Rule Out COVID-19 03/07/2023 03/07/2023 03/07/2023 6:30 PM INSPECTOR AIR CARRIER documented as of this encounter Care Teams Dry Yard Worker Relationship Specialty Start Date End Date Avila Lemus [place] [phone] PCP - General 06/04/02 11/15/13 [facility] [place] [address] [place], [place] [address] PCP - General Internal Medicine 11/16/13 11/26/13 Nick Perez MD [address] [place] [address] PCP - General Internal Medicine 11/27/13 12/25/13 Aylin Tsai MD [address] [facility] [address] [place] [address] PCP - General Internal Medicine 12/26/13 05/21/18 Karol Kaiser MD [address] [place] [address] PCP - Assigned PCP 01/07/18 01/20/18 Roalndo Garza MD [address] [place] [address] PCP - Assigned PCP 01/21/18 05/15/18 Mahad Stafford MD [facility] [address] [place] [address] PCP - General Internal Medicine 02/14/23 Rolando Garza MD [address] [place] [address] Assigned PCP 01/21/18 01/19/19 Aylin Tsai MD [address] [facility] [address] [place], [place] [address] Assigned PCP 01/20/19 08/31/19 Karol Kaiser MD [address] [place], [place] [address] Assigned PCP 09/01/19 05/23/20 Rolando Garza MD [address] [place] [address] Assigned PCP 05/24/20 01/16/21 Mejia Slater PA-C [address] [place] [address] Physician Client Integration Manager Cardiovascular Disease 03/09/23 Mejia Slater PA-C [address] [place] [address] Assigned Heart and Vascular Provider 03/18/23 08/02/23 Rigo Alexander MD Assigned Heart and Vascular Provider 08/03/23 05/04/24 Mejia Slater PA-C [address] [place], [place] [address] Assigned Heart and Vascular Provider 05/05/24 documented as of this encounter
--- OUTSIDE RECORDS SUMMARY | 2024-05-27 23:25 | XMS_ITS | Encounter Summary ---
Author Organization [facility] Address [address], [place] [address] Care Team Providers Care Jalousie Installer Name Role Phone Mahad Stafford MD Primary Care Provider Encounter Details Date Type Department Care Team (Late st Contact Info) Description 02/25/2005 [place] [id number] [address] [place] [address] Gonzalo Veronica MD [address] [place] [address] [place] medical operative report Social History Tobacco Use Types Packs/Day Years [...] as of this encounter Progress Notes * Gonzalo Veronica - 02/25/2005 12:00 AM PASSENGER TIRE BUILDER ENGER TIRE BUILDER documented in this encounter Plan of Treatment Upcoming Encounters Date Type Department Care Team (Late st Contact Info) Description 06/18/2024 10:00 AM CDT Appointment [facility] [address] [place] [address] [place] [address] [facility] [address] 07/18/2024 8:00 AM CDT Appointment Joann Yung [id number] [address] Scan [id number] [facility] [place] [id number] John Walton MD [address] [facility] [address] [place] [address] 07/30/2024 9:30 AM CDT Appointment [facility] [address] [place] [id number] 07/30/2024 10:45 AM CDT Office Visit [facility] Pulmonary Medicine [address] [place] [id number] John Walton MD [address] [facility] [address] [place] [address] documented as of this encounter Visit Diagnoses Not on filedocumented in this encounter Additional Health Concerns Infection Onset Date Last Indicated Resolved Time R/O COVID19 02/05/2020 02/05/2020 02/10/2020 9:41 PM PASSENGER TIRE BUILDER R/O COVID19 08/30/2021 08/30/2021 08/30/2021 8:59 PM CDT documented as of this encounter Care Teams Jalousie Installer Relationship Specialty [place] [address] [place] [address] PCP - General Internal Medicine 12/25/18 documented as of this encounter
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
--- OUTSIDE RECORDS SUMMARY | 2024-05-27 23:25 | XMS_ITS | Encounter Summary ---
Author Organization [facility] Address [address] [facility] 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 Gender Identity Not on file Sexual Orientation Not on file documented as of this encounter Plan of Treatment Not on file documented as of this encounter Visit Diagnoses Not on filedocumented in this encounter Additional Health Concerns Assessment Noted Time PHQ-9 Depression Total Score: 6 10/05/19 18 7:09 AM CDT documented as of this encounter Care Teams Home Housekeeper Relationship Specialty Start Date End Date Mahad Stafford MD [facility] [place] [address] [place] [address] PCP - General Internal Medicine 02/14/23 Mejia Slater PA-C [address] [place] [address] Physician [place] Actor Cardiovascular Disease 03/09/23 Rigo Alexander MD Assigned Heart and Vascular Provider 08/03/23 05/04/24 documented as of this encounter
--- OUTSIDE RECORDS SUMMARY | 2024-05-27 23:25 | XMS_ITS | Encounter Summary ---
Author Organization [facility] Address [address] [facility] [place] [address] Care Team Providers Care Choir Teacher Name Role Phone Nydia Mahad Carrillo MD Primary Care Provider [phone] Slater, Anah E PA-C Unavailable [phone] Rigo Alexander MD Unavailable Un available Slater, Anah E PA-C Unavailable [phone] Reason for Visit * Reason Onset Date Comments Symptoms 10/02/2023 Allergic reactio n of red spots all over arms from Eliquis Encounter Details Date Type Department Care Team (Late st Contact Info) Description 10/02/2023 Telephone [facility] [address] [place] [address] Slater, Anah E, PA-C [address] [place] [address] Symptoms (Allergic reaction of red spots all over arms from Eliquis) Social History Tobacco Use Types Packs/Day Years [...] on file 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 Gender Identity Not on file Sexual Orientation Not on file documented as of this encounter Miscellaneous Notes * Telephone Encounter - GrahamEvelyn - 10/02/2023 1:09 PM CDT Caller reporting the following red-flag symptom(s): Allergic reaction of red spots all over arms from Eliquis Per the system red-flag symptom policy, patient was instructed to: speak with a Registered Nurse Action: Patient warm transferred to a Registered Nurse documented in this encounter Plan of Treatment Not on file documented as of this encounter Visit Diagnoses Not on filedocumented in this encounter Additional Health Concerns Assessment Noted Time PHQ-9 Depression Total Score: 6 10/05/19 18 7:09 AM CDT documented as of this encounter Care Teams Choir Teacher Relationship Specialty Start Date End Date Mahad Stafford MD [facility] [address] [address] [place] [address] PCP - General Internal Medicine 02/14/23 Mejia Slater PA-C [address] [place] [address] Physician Rn Employee Health Cardiovascular Disease 03/09/23 Rigo Alexander MD Assigned Heart and Vascular Provider 08/03/23 05/04/24 Mejia Slater PA-C [address] [place] [address] Assigned Heart and Vascular Provider 05/05/24 documented as of this encounter
--- OUTSIDE RECORDS SUMMARY | 2024-05-27 23:25 | XMS_ITS | CCD ---
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) Functional Status Date Name Score 11/28/2018 Karnofsky performance status 100 11/15/2017 Karnofsky performance status 100 11/21/2016 Karnofsky performance status 100 11/30/2015 Karnofsky performance status 100 11/24/2014 Karnofsky performance status 100 05/26/2014 Karnofsky performance status 100 01/20/2014 Karnofsky performance status 90 Medications Date Name Route Dose Frequency Instructions Start Date End Date Status Fenofibrate Micronized Oral PO 1.0 CAPSULE (S) daily 019 active 019 Cholecalciferol Oral PO 1.0 TABLET( S) daily 019 active 019 Miscellaneous Drug PO 1.0 CAPSULE (S) as directed Hydrocortisone- 20mg daily (needed for life) 019 active 019 Paroxetine Oral PO 1.0 TABLET( S) daily 019 active 019 Levothyroxine Oral PO 1.0 CAPSULE (S) daily 019 active Problems Diagnosis Status Date of Diagnosi s Body mass index (BMI) 31.0-31.9, adult Inactive Body mass index (BMI) 32.0-32.9, adult Inactive Body mass index (BMI) 34.0-34.9, adult Inactive Solitary nodule of lung (finding) Active Social History Date Name Value 11/30/2020 Sex Female
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
--- OUTSIDE RECORDS SUMMARY | 2024-05-27 23:25 | XMS_ITS | Encounter Summary ---
[facility] Address [address], [place] [address] Care Team Providers Care Dial Lathe Operator Name Role Phone Keren Zuleta MD Primary Care Provider Reason for Visit * Reason Comments Refill potassium chloride 1 0 MEQ controlled release capsule [Pharmacy Med Name: Potassium Chloride ER Oral Capsule Extended Release 10 MEQ] Encounter Details Date Type Department Care Team (Late st Contact Info) Description 04/20/2024 Refill [facility] [address] [place], [place] [phone] Keren Zuleta MD [address] [place] [id number] Refill (potassium chloride 10 MEQ controlled release capsule [Pharmacy Med Name: Potassium Chloride ER Oral Capsule Extended Release 10 MEQ]) Social History Tobacco Use Types Packs/Day Years [...] as of this encounter Nursing Notes * Jessenia Aguirre, RN - 04/23/2024 4:54 PM CST Renewed medication per medication refill standing order. Requested Prescriptions Pending Prescriptions Disp Refills potassium chloride 10 MEQ controlled release capsule [Pharmacy Med Name: Potassium Chloride ER OralCapsule Extended Release 10 MEQ] 90 Capsule 1 Sig: Take 1 Capsule (10 mEq) by mouth daily. * Adenike Be Xrwcomm - 04/20/2024 11:01 AM CST potassium chloride 10 MEQ controlled release capsule [Pharmacy Med Name: Potassium Chloride ER OralCapsule Extended Release 10 MEQ] Medication started: 04/17/2023 Last ordered by KEREN ZULETA H: 01/11/2024 (100 days ago) QTY: 90, Refills: 0, Sig: take 1 capsule (10 meq) by mouth daily. (changed but equivalent) -> Refill x 6 months, qty: 90, refills: 1 (until due for an office visit and K check) Last qualifying visit: 10/16/2023 (with KEREN ZULETA) Next scheduled visit: None K: 3.7 mEq/L on 10/16/2023 [facility] Embedded Refills, Reference: [id number], 04/20/2024 11:01:15 AM Guillermo KRAUSE: ANABEL Refill [facility] - Primary Care [[id number]] ([id number]) HUNTER * Adenike Be - 04/20/2024 11:01 AM CST The following lab order(s) may be associated with the following Patient Result Comment (Entered by Keren Zuleta MD at 10/16/2023 5:11 PM): HGB A1C A1c is looking much better. See you in 3 months. HUNTER documented in this encounter Plan of Treatment Upcoming Encounters Date Type Department Care Team (Late st Contact Info) Description 06/18/2024 10:00 AM CDT Appointment [facility] [address] [place] [address] [place] [address] [place] [address] 07/18/2024 8:00 AM CDT Appointment Joann Cortés [place] [address] Scan [address] [place] [phone] John Walton MD [address] [facility] [address] [place] [address] 07/30/2024 9:30 AM CDT Appointment [facility] [facility] [address] [facility] [place] [place] [phone] 07/30/2024 10:45 AM CDT Office Visit [facility] Pulmonary Medicine [address] [facility] [place] [address] John Walton MD [address] [facility] [address] [place] [address] documented as of this encounter Visit Diagnoses Diagnosis White coat syndrome with diagnosis of hypertension (HRC) documented in this encounter Care Teams Dial Lathe Operator Relationship Specialty [place] [address] [place] [address] PCP - General Internal Medicine 12/25/18 documented as of this encounter
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
--- OUTSIDE RECORDS SUMMARY | 2024-05-27 23:25 | XMS_ITS ---
Author Name [facility], [id number] Address [address] [facility] [address] [address] Organization [facility] Address [address] [facility] [address] [address] Care Team Providers Care Furnace Keeper Name Role Phone Mich Amaya Unavailable Unavailable Allergies and Adverse Reactions Medication/Group Name Reaction Severity Date Sulfa (Sulfonamide Antibiotics) 12/05/2022 Plan Date Type Value 12/05/2022 APPOINTMENT OUTSIDE TEST 5 M IN 12/05/2022 APPOINTMENT OV 15 MIN 12/06/[address] chest w/ IV c ontrast Reason for Visit OV 15 MIN Encounters Date Name 12/05/2022 Carcinoid tumor (dis order) Medications Date Name Route Dose Frequency Instructions Start Date End Date Status Cholecalciferol Oral PO 1.0 TABLET( S) daily 019 active Paroxetine Oral PO 1.0 TABLET( S) daily 019 active 019 Miscellaneous Drug PO 1.0 CAPSULE (S) as directed Hydrocortisone- 20mg daily (needed for life) 019 active 019 Levothyroxine Oral PO 1.0 CAPSULE (S) daily 019 active 019 Fenofibrate Micronized Oral PO 1.0 CAPSULE (S) daily 019 active Problems Diagnosis Status Date of Diagnosi s Carcinoid tumor (disorder) Active 01/07 Solitary nodule of lung (finding) Active Vital Signs Date Type Value 12/05/2022 Intravascular Systolic 146 12/05/2022 Intravascular Diastolic 90 12/05/2022 Body Temperature 98.60 12/05/2022 Heart Beat 91.00 12/05/2022 Respiratory Rate 18.00 12/05/2022 BSA 2.15 12/05/2022 Pain Scale 0.00 12/05/2022 Weight 216.00 12/05/2022 Height 69.60 12/05/2022 BMI 31.35 12/05/2022 Oxygen Saturation 93.00 Notes Section * Thoracic Visit Note Patient Name:??DORIS MARTINEZ Date of :??1945 Date:??12/05/2022 THORACIC VISIT NOTE ??Mrs. Doris Martinez??is seen in follow-up visit on??12/05/2022.?? 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 She is doing well. ??She has no significant respiratory symptoms.?? She has no symptoms of carcinoid syndrome.?? A CT scan of the chest was done today. ??There is a few tiny nodules which are stable.?? I do not see evidence of recurrent or metastatic disease and I will see her in 2 yearswith follow-up CT scan. Mich Amaya MD [facility] Mich Amaya MD Copy to:?? Electronically signed by Mich Amaya MD 12/08/2022 14:50 CDT
[2024-05-27 23:30] VITALS: BP 147/104; PULSE 67; RESP 18; O2SAT 98
== END 2024-05-27 23:36 | disposition home or self-care (01) ==
LOC: ED 23:22
PROVIDERS: Emergency Provider Emergency Medicine
DX: J10.1 Influenza due to other identified influenza virus with other respiratory manifestations (principal); J45.901 Unspecified asthma with (acute) exacerbation
CPT/HCPCS: 71046; 87631; 99283; 99284